=== PATIENT | male | born 1940 | race African-American/Black ===

== ENCOUNTER 2020-05-17 11:16 | Inpatient (IN) | payer MEDICARE, SELFPAY ==
--- NOTE | ~2020-05-17 | XR_ITS ---
EXAMINATION: XR abdomen/kub 1V DATE: 05/18/2020 11:06 INDICATION: Small bowel obstruction. TECHNIQUE: A supine view of the abdomen on 2 radiographs was obtained. COMPARISON: CT abdomen and pelvis 05/17/2020 FINDINGS: There is dilated small bowel in the right abdomen. The colon is decompressed. IMPRESSION: 1. Dilated small bowel, consistent with small bowel obstruction. Reviewed, dictated and finalized at location B. ALOMETRIC TECHNICIAN
--- NOTE | ~2020-05-17 | US_ITS ---
EXAMINATION: US carotid duplex BI DATE: 05/25/2020 14:13 INDICATION: Possible CVA. TECHNIQUE: Grayscale, color Doppler, and pulsed Doppler images of the cervical carotid arteries were obtained. The degree of vessel stenosis is placed in one of the following categories: normal, <50%, 5 0-69%, >=70% but less than near-occlusion, near-occlusion, or total occlusion. Note that percent sten osis relative to normal distal artery lumen diameter is indirectly measured from velocity measurement s as described by Amadou, et al. Radiology 2003; 229:340-346. Notes: Normal: Peak systolic velocity <125 centimeters/sec and no plaque <50%. Peak systolic velocity <125 ( EDV <40; ICA/CCA PSV ratio <2.0; used these factors only a tandem lesions or low cardiac output or co ntralateral disease) 50-69 %: PSV 125-230 (EDV 40-100; ratio 2-4) >= 70% but less than near occlusion: PSV greater than 230 (EDV > 100; ratio> 4.0) Near Occlusion: PSV that is variable; markedly narrowed lumen Occlusion: Absent flow on color/spectral Doppler and no lumen on nugent scale. COMPARISON: None. FINDINGS: RIGHT: The right common carotid artery (CCA) peak systolic velocity (PSV) is 72 cm/s. The right internal car otid artery (ICA) PSV is 57 cm/s. The right ICA end-diastolic velocity (EDV) is 13 cm/s. The right IC A/CCA PSV ratio is 1.1. The external carotid artery (ECA) PSV is 85 cm/s. There is antegrade flow in the right vertebral artery. LEFT: The left CCA PSV is 103 cm/s. The left ICA PSV is 60 cm/s. The left ICA EDV is 10 cm/s. The left ICA/ CCA PSV ratio is 0.7. The ECA PSV is 78 cm/s. There is antegrade flow in the left vertebral artery. IMPRESSION: 1. Less than 50% stenosis in the right internal carotid artery by sonographic criteria. 2. Less than 50% stenosis in the left internal carotid artery by sonographic criteria. Reviewed, dictated and finalized at location A. ENCY EXCHANGE SPECIALIST IMPRESSION: 1. Less than 50% stenosis in the right internal carotid artery by sonographic yoel mclaughlin. 2. Less than 50% stenosis in the left internal carotid artery by sonographic mckinley herring.
--- NOTE | ~2020-05-17 | CT_ITS ---
EXAMINATION: CT brain wo con DATE: 05/21/2020 14:13 INDICATION: Mental status change. TECHNIQUE: Computed tomography (CT) of the head was performed without intravenous contrast. The mA wa s adjusted according to patient size. Iterative reconstruction technique was employed. The dose-lengt h product was 681.00 mGy-cm. COMPARISON: None FINDINGS: There is diffuse brain volume loss. There are scattered areas of low attenuation in the cer ebral white matter. There is no intracranial hemorrhage, acute infarction, or abnormal intracranial m ass lesion. The ventricles are normal in size for the degree of brain volume loss. The paranasal sinu ses are clear. The orbits are normal. The mastoid air cells are normal. IMPRESSION: 1. Extensive nonspecific cerebral white matter disease, which likely represents chronic small vessel ischemic disease. Reviewed, dictated and finalized at location B. D GLASS ROD DOWEL MACHINE OPERATOR
--- NOTE | ~2020-05-17 | MR_ITS ---
EXAMINATION: MR brain/brain stem wo con DATE: 05/24/2020 13:07 INDICATION: Confusion. TECHNIQUE: Magnetic resonance imaging (MRI) of the brain and brainstem was performed without intraven ous contrast. Sequences included sagittal and axial T1-weighted FSE, axial diffusion-weighted FS EPI, axial T2*-weighted GRE, axial T2-weighted FLAIR Propeller, and axial T2-weighted Propeller. Apparent diffusion coefficient (ADC) maps were created. COMPARISON: Head CT 05/21/2020 FINDINGS: There is diffuse brain volume loss. There is no intracranial hemorrhage, acute infarction, or abnormal intracranial mass lesion. There are scattered areas of nonspecific increased T2-weighted signal intensity in the cerebral white matter and hannah. The ventricles are normal in size for the deg ree of brain volume loss. There is mild mucosal thickening in right maxillary sinus. The mastoid air cells are normal. The orbits are normal. IMPRESSION: 1. Extensive nonspecific cerebral white matter disease and pontine disease, which likely represents c hronic small vessel ischemic disease. Reviewed, dictated and finalized at location A. STRIPPER IMPRESSION: 1. Extensive nonspecific cerebral white matter disease and pontine disease, whi ch likely represents chronic small vessel ischemic disease.
--- NOTE | ~2020-05-17 | XR_ITS ---
EXAMINATION: XR chest 2V DATE: 05/23/2020 13:20 INDICATION: Cough and sputum production. TECHNIQUE: frontal and lateral views of the chest were obtained. COMPARISON: CT abdomen and pelvis dated 05/17/2020 FINDINGS: Evaluation is limited by patient body habitus particularly on the lateral projection. Subtle bronchie ctatic changes are seen at the bilateral lower lung zones, right greater than left which are better a ppreciated on prior CT. Subtle bilateral perihilar opacities and additional airspace opacities in the right upper lung zone. No pleural effusion or pneumothorax. Heart size is normal. IMPRESSION: 1. Opacities in the right upper lung zone and bilateral perihilar regions which could represent pneum onia, pulmonary edema, atelectasis or some combination thereof. 2. Bronchiectatic changes at the bilateral lower lobes, right greater than left. Reviewed, dictated and finalized at location A. ROOM SUPERVISOR IMPRESSION: 1. Opacities in the right upper lung zone and bilateral perihilar regions which could represent pneumonia, pulmonary edema, atelectasis or some combination th ereof. 2. Bronchiectatic changes at the bilateral lower lobes, right greater than left .
--- NOTE | ~2020-05-17 | XR_ITS ---
EXAMINATION: XR barium swallow modified DATE: 05/19/2020 15:16 INDICATION: Dysphagia. TECHNIQUE: The patient was given barium-containing material of multiple consistencies to swallow by torri guerrier speech pathologist while I performed fluoroscopy. Dose-area product was [id number] Gy-cm2. FINDINGS: Oral Stage: Within functional limits Pharyngeal Phase: Reduced laryngeal elevation and abduction Reduced tongue base retraction Reduced pharyngeal squeeze Significant vallecular residue Laryngeal penetration and aspiration, uncontrolled, with thin liquids, with weak cough reflex and inc omplete clearance of aspirate Cervical/Esophageal Stage: Within functional limits IMPRESSION: Modified esophagram findings as above. Please refer to the speech [facility]. Reviewed, dictated and finalized at Location A. Reviewed, dictated and finalized at location A. BILITATION CASE COORDINATOR IMPRESSION: Modified esophagram findings as above. Please refer to the speech t herapy report for specific recommendations.
--- NOTE | ~2020-05-17 | XR_ITS ---
EXAMINATION: XR abdomen NG/feed tube insert DATE: 05/17/2020 14:51 INDICATION: Nasogastric tube placement. TECHNIQUE: An upright view of the abdomen was obtained. COMPARISON: CT abdomen and pelvis 05/17/2020 FINDINGS: The lower abdomen is excluded. There are no gas-filled dilated loops of bowel. The nasogast yobani tube tip is in the stomach. Chronic lung disease is noted. IMPRESSION: 1. Nasogastric tube tip in the stomach. Reviewed, dictated and finalized at location B. R REPAIR SHOP SUPERVISOR
--- NOTE | ~2020-05-17 | XR_ITS ---
MODIFIED ESOPHAGRAM HISTORY: Dysphagia. TECHNIQUE: Modified barium esophagram was performed by speech pathologist under radiologist fluorosco pic guidance. This was recorded on tape. The exam was reviewed on 05/26/2020 09:13 LEARNING DESIGNER. The Fluoro scopy time is 0.8 minutes. One fluoroscopic image. FINDINGS: Lateral projection of the cervical spine demonstrates normal alignment. There is normal s wallowing function without evidence for penetration or aspiration.. IMPRESSION: 1: Normal swallowing function without evidence for aspiration or penetration. 2: Please refer to speech pathologist report for additional detail. Reviewed, dictated and finalized at location A. NING DESIGNER
--- NOTE | ~2020-05-17 | CT_ITS ---
EXAMINATION: CT chest wo con DATE: 05/23/2020 18:30 INDICATION: Cough and increased sputum production TECHNIQUE: Computed tomography (CT) of the chest was performed without intravenous contrast. The dose -length product (DLP) was 853.32 mGy-cm. Automated exposure control and iterative reconstruction tech nique were employed. COMPARISON: None FINDINGS: There are airspace opacities of the right upper lobe and dependent airspace opacities in th e bilateral lower lobes. There is bilateral perihilar bronchiectasis extending into the upper and low er lobes. Small pleural effusions are present. There is no pneumothorax. There is calcified coronary artery atherosclerosis. No pathologically enlarged thoracic lymph nodes are identified. The heart siz e is normal. Bilateral gynecomastia is noted. There is mild thoracic spondylosis. Severe lower cervic al spondylosis is noted. Contrast from recent modified esophagram partially opacifies the large bowel . IMPRESSION: 1. Airspace opacities in the right upper lobe and bilateral lower lobes, consistent with pneumonia. 2. Bronchiectasis. Reviewed, dictated and finalized at location A. UCE TEAM MEMBER IMPRESSION: 1. Airspace opacities in the right upper lobe and bilateral lower lobes, consis tent with pneumonia. 2. Bronchiectasis.
--- NOTE | ~2020-05-17 | CT_ITS ---
EXAMINATION: CT abdomen pelvis wo con DATE: 05/17/2020 13:23 INDICATION: Abdominal pain, constipation TECHNIQUE: Computed tomography (CT) of the abdomen and pelvis was performed without intravenous contr ast. Automated exposure control and iterative reconstruction technique were employed. Exam dose: 148 0.78 mGy-cm total exam DLP. COMPARISON: None. FINDINGS: There is bronchiectasis and probable fibrotic change in the lower lobes and middle lobe, es pecially the posteromedial right lower lobe. There are numerous small stones in the dependent aspect of the gallbladder. No gallbladder wall thick ening or pericholecystic fluid or inflammation is noted. No hepatic space-occupying mass lesion or bi le duct dilatation is evident. There is borderline splenomegaly. No pancreatic mass lesion, calcification or ductal dilatation. Normal morphology of the right adrenal gland. Approximately 7.5 x 12.5 mm left adrenal mass most like ly a small adrenal adenoma in the absence of any known malignancy. Bilateral renal scarring and atrophy. No renal mass lesion or urinary tract calculus or hydroureteron ephrosis. There is atherosclerotic calcification of the abdominal aorta, iliac and femoral arteries. No intrape ritoneal or retroperitoneal or pelvic mass lesion or adenopathy or ascites. There is a Kaye catheter within the evacuated urinary bladder. There is mild pericystic fat strandin g; consider possible cystitis. There are numerous diverticula of the sigmoid and descending colon; there is mild pericolic fat stran ding in the sigmoid colon area, cannot exclude mild sigmoid diverticulitis, without abscess. Normal a ppendix. There is a left inguinal hernia containing small bowel, with associated partial obstruction of the sm all bowel, with proximal fluid-filled small bowel measuring up to 2.5 cm diameter. There is decompres soha of the small bowel as it exits the hernia. There is a fat-containing right inguinal hernia. There is a small fat-containing umbilical hernia. Diffuse osteopenia. There is prominent degenerative disc disease at L4-5 and L5-S1. Is prominent degenerative change at t he apophyseal joints of the lumbar spine IMPRESSION: Left inguinal small bowel containing hernia with associated small bowel obstruction Fat-containing mild right inguinal hernia Cholelithiasis Borderline splenomegaly Probable 7.5 x 12.5 mm left adrenal adenoma Bilateral renal scarring and atrophy Kaye catheter within the evacuated urinary bladder; pericystic fat stranding, cannot exclude cystiti s Diverticulosis of the left colon; cannot exclude mild sigmoid diverticulitis without abscess Reviewed, dictated and finalized at [facility]. Reviewed, dictated and finalized at [facility]. DIGGER IMPRESSION: Left inguinal small bowel containing hernia with associated small bowel obstruction Fat-containing mild right inguinal hernia Cholelithiasis Borderline splenomegaly Probable 7.5 x 12.5 mm left adrenal adenoma Bilateral renal scarring and atrophy Kaye catheter within the evacuated urinary bladder; pericystic fat stranding, cannot exclude cystitis Diverticulosis of the left colon; cannot exclude mild sigmoid diverticulitis wi thout abscess
--- NOTE | ~2020-05-17 | US_ITS ---
EXAMINATION: US renal BI DATE: 05/18/2020 07:57 INDICATION: Acute kidney injury. TECHNIQUE: Multiple ultrasound grayscale images of the kidneys were obtained. COMPARISON: CT abdomen and pelvis 05/17/2020 FINDINGS: The right kidney measures 8.7 x 4.2 x 4.6 cm. The left kidney measures 9.2 x 5.0 x 5.5 cm. The kidney s demonstrate normal parenchymal echogenicity. There is cortical thinning of the kidneys There is no hydronephrosis. The bladder is decompressed by a Kaye catheter. IMPRESSION: 1. Mild atrophy of the kidneys. No hydronephrosis. Reviewed, dictated and finalized at [facility]. ID COMPOUNDER
--- NOTE | ~2020-05-17 | US_ITS ---
EXAMINATION: US soft tissue upper back DATE: 05/26/2020 14:43 INDICATION: Left posterior thorax soft tissue mass. TECHNIQUE: Multiple grayscale and Doppler ultrasound images of the left posterior thorax were obtaine d. COMPARISON: Chest CT 05/23/2020 FINDINGS: There is a 6.0 x 4.7 x 2.4 cm subcutaneous mass in the left posterior superior thorax that is almost completely fat on the recent CT, consistent with a lipoma. IMPRESSION: 1. 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 Reviewed, dictated and finalized at location [facility]. DEVELOPER
[2020-05-17 11:22] VITALS: BP 136/83; PULSE 67; RESP 16; TEMP 35.9; O2SAT 99
[2020-05-17 12:17] LABS: Basophils Percent Auto 0.3 % (0.2-1.2); Eosinophils Percent Auto 0.3 % (0-4.4); Hematocrit 44.2 % (42.0-52.0); Hemoglobin 15.3 g/dL (14.0-18.0); Immature Granulocyte Absolute 0.01 K/mm3 (0.00-0.031); Immature Granulocyte Percent A 0.3 % (0-0.5); Lymphocytes Absolute Auto 0.48 K/mm3 (0.9-3.2); Lymphocytes Percent Auto 13.5 % (18.3-44.2); Mean Corpuscular HGB Conc 34.6 g/dl (32-36); Mean Corpuscular Volume 101.1 fl (80-100); Monocytes Absolute Auto 0.4 K/mm3 (0.1-0.6); Monocytes Percent Auto 12.1 % (2.6-8.5); Neutrophils Absolute Auto 2.6 K/mm3 (1.3-6.7); Neutrophils Percent Auto 73.5 % (45.5-73.1); Platelet Count Result 142 k/mm3 (150-375); Red Blood Count 4.37 M/mm3 (4.6-6.20); Red Cell Distribution Width 14.8 % (11.5-14.5); White Blood Count 3.6 K/mm3 (4.5-10.0)
[2020-05-17 12:33] LABS: Alanine Aminotransferase 38 U/L (4-50); Albumin Level 4.2 g/dL (3.5-5.1); Alkaline Phosphatase 88 U/L (38-126); Anion Gap 15 mmol/L (8-16); Aspartate Amino Transferase 59 U/L (17-59); Blood Urea Nitrogen 90 mg/dL (9-20); Calcium 10.4 mg/dL (8.4-10.2); Carbon Dioxide 19 mmol/L (22-30); Chloride 98 mmol/L (98-107); Estimated CRCL calculation 12 ml/min; Estimated Glomerular Filt Rate 11; Glucose 115 mg/dL (75-110); Lipase 263 U/L (23-300); Potassium 5.3 mmol/L (3.4-5.0); Sodium 132 mmol/L (137-145)
--- NOTE | 2020-05-17 13:16 | ED.GENADULT ---
HPI - General Adult General Chief complaint: Abdominal Pain Stated complaint: abd pain Time Seen by Provider: 05/17/20 13:09 Source: RN notes reviewed History of Present Illness HPI narrative: Patient presents to emergency department from home for abdominal pain. Patient states he has had abdominal pain for the past 4 days pain is described as aching in nature and diffuse throughout the abdomen associated with nausea and vomiting. Patient denies any fevers or chills chest pain shortness of breath diarrhea or any other symptoms. Per the patient's son is present patient does have a history of alcohol use does not drink for the past 5 days. Patient states he has been having decreasing urine output. When patient is asked about alcohol use he states he drinks what ever he is able to Related Data Home Medications Medication Instructions Recorded Confirmed No Home Medications 05/17/20 05/17/20 Allergies Allergy/AdvReac Type Severity Reaction Status Date / Time No Known Allergies Allergy Verified 05/17/20 13:07 Review of Systems Review of Systems: Narrative: Gen.: Denies fevers or chills ENT: Denies congestion Respiratory: Denies shortness of breath or cough CV: Denies chest pain or palpitations GI: See HPI denies burning, urgency, frequency or hematuria Musculoskeletal: Denies back pain or muscle pain Neuro: Denies numbness, tingling, weakness or focal weakness Skin: Denies rash Except as documented, all other systems reviewed and negative PMFSH Past Medical History Medical History (Updated 05/17/20 @ 15:[address]vilal DO) Patient denies significant medical history Social History Social History (Updated 05/17/20 @ 13:[address] Sevilla DO) Smoking status: Former smoker Gender identity (if verbalized by the patient): Male Exam Narrative: Exam Narrative: APPEARANCE: No acute distress, nontoxic, resting in bed HEENT: Normocephalic, atraumatic, OMM RESPIRATORY: No respiratory distress, clear to auscultation bilaterally with no rhonchi wheezing or rales CARDIOVASCULAR: RRR s murmur ABDOMINAL: Soft, nondistended, diffusely tender to palpation no rebound or guarding left inguinal hernia that is nontender and nonreducible MUSCULOSKELETAl: Moves all extremities. No clubbing, cyanosis or edema. NEURO: Awake and alert. Following commands, speech normal, no focal deficits SKIN:: Warm, dry. Normal Color PSYCHIATRIC: Normal affect/mood Course Course Emergency Course: Called and discussed with Dr. Gutierrez presentation work-up. This time will come to see patient in the ED. Agrees with consult recommends admission to hospital service Called and discussed with ENA Tracy for Dr. Clark presentation work-up. Agrees with admission at this time Discussed with patient and family results of workup and diagnosis. Discussed need for admission. Patient and family understand and agree to current treatment plan Nidhi from general surgery came to see pt in ED Vital Signs Vital signs: Vital Signs Temperature 96.7 F L 05/17/20 11:22 Pulse Rate 67 05/17/20 11:22 Respiratory Rate 16 05/17/20 11:22 Blood Pressure 136/83 05/17/20 11:22 Pulse Oximetry 99 05/17/20 11:22 Temperature 96.7 F L 05/17/20 11:22 Pulse Rate 78 05/17/20 15:04 Respiratory Rate 18 05/17/20 15:04 Blood Pressure 132/78 05/17/20 15:04 Pulse Oximetry 99 05/17/20 15:04 Medical Decision Making Vital Signs Vital Signs: Vital Signs Temperature 96.7 F L 05/17/20 11:22 Pulse Rate 67 05/17/20 11:22 Respiratory Rate 16 05/17/20 11:22 Blood Pressure 136/83 05/17/20 11:22 Pulse Oximetry 99 05/17/20 11:22 Temperature 96.7 F L 05/17/20 11:22 Pulse Rate 78 05/17/20 15:04 Respiratory Rate 18 05/17/20 15:04 Blood Pressure 132/78 05/17/20 15:04 Pulse Oximetry 99 05/17/20 15:04 Lab Data Result diagrams: 05/17/20 12:07 05/17/20 12:07 Labs: Lab
--- NOTE | 2020-05-17 13:17 | ECG_ITS ---
Measurements Intervals Robert Rate: 103 P: 26 SD: 159 QRS: 180 QRSD: 158 T: 15 QT: 365 QTc: 479 Interpretive Statements SINUS TACHYCARDIA RIGHT AXIS DEVIATION RIGHT BUNDLE BRANCH BLOCK BASELINE ARTIFACT- II, V2-V3 ABNORMAL ECG Electronically Signed On 05-17-2020 14:18:00 RETAIL MARKETING MANAGER by Clayton Gabriel D.O.
[2020-05-17 13:29] LABS: Ethanol < 10 mg/dL (<10)
[2020-05-17 13:39] LABS: Add Urine Microscopic? YES; Appearance Urine Clear (Clear); Bilirubin Urine Negative (Negative); Blood Urine 3+ (Negative); Color Urine Yellow (Yellow); Glucose Urine UA Negative (Negative); Hyaline Casts Urine 20-29 /lpf; Ketones Urine Negative (Negative); Leukocyte Esterase Ur Trace LEU/UL (Negative); Mucus Urine Rare /lpf; Nitrate Urine Negative (Negative); Protein Urine 1+ mg/dL (Negative); RBC Urine 21-50 /hpf (0-2); Specific Grav Ur 1.018 (1.001-1.035); Squamous Epithelial Cell Urine Few /hpf (Few)
[2020-05-17 14:19] LABS: Lactic Acid Reflex 2.2 mmol/L (0.7-2.1)
[2020-05-17] MEDS: SODIUM CHLORIDE 0.9% IV 1,000 ML 999 ML IV CONT (14:41)
--- NOTE | 2020-05-17 14:42 | PC.NURSE ---
ng tube placed in right nare on third attempt. 1400 cc immediate return of brown fluid
[2020-05-17] MEDS: THIAMINE HCL 200 MG/2 ML VIAL 100 MG IV PUSH (15:01)
[2020-05-17] MEDS: SODIUM CHLORIDE 0.9% IV 1,000 ML 125 ML IV CONT ×2 (15:02→17:54)
[2020-05-17 15:04] VITALS: BP 132/78; PULSE 78; RESP 18; O2SAT 99
[2020-05-17 16:00] VITALS: BP 152/88; PULSE 104; PULSE 56; RESP 19; TEMP 36.2; O2SAT 86; BMI 31.1
--- NOTE | 2020-05-17 16:01 | ADMGEN ---
This patient, Vin Sylvester , was admitted to Medical Room 256-01. Patient/family oriented to hospital policies and general routines including ID bracelet, bed and alarms, visiting hours, pain management, procedures, bathroom and other care routines, personal items, smoking policy, room service/diet, and visiting hours. Information on how to activate the Rapid Response Team has been discussed. Patient/Family are encouraged to report perceived risks to care and to ask questions if they do not understand what they are told or what they should do.
--- NOTE | 2020-05-17 16:12 | PM.CNGS ---
Assessment and Plan Assessment and plan (1) Incarcerated left inguinal hernia: Code(s): K40.30 - Unilateral inguinal hernia, with obstruction, without gangrene, not specified as recurrent Status: Acute Assessment and Plan: CT scan reviewed and discussed with the patient and his son in detail. He has evidence of a left inguinal hernia containing small bowel that appears to be causing a small bowel obstruction. I was unable to fully reduce this hernia on my exam in the ER, although he is completely non-tender and having no pain in this area. The hernia seems to be incarcerated but no evidence of strangulation. It is likely that he has had this hernia for years. I discussed the patient's case and plan of care with Dr. Gutierrez. We will continue NG tube decompression, bowel rest, IV fluids, and analgesics for now. Dr. Gutierrez will also be seeing the patient and see if he is able to reduce the hernia. He will need this hernia repaired, but approach for surgery and timing will be forthcoming following Dr. Gutierrez's evaluation. Thank you for allowing us to see the patient in consultation and we will continue to follow along with you. (2) SBO (small bowel obstruction): Code(s): K56.609 - Unspecified intestinal obstruction, unspecified as to partial versus complete obstruction Status: Acute Assessment and Plan: Small bowel obstruction secondary to the left inguinal hernia mentioned above. Continue NG tube decompression, bowel rest, IV fluids, and analgesics as needed for pain. See plan above. (3) Acute renal failure: Code(s): N17.9 - Acute kidney failure, unspecified Status: Acute Assessment and Plan: Creatinine 5.3 on admission. Possible urinary retention. Kaye catheter in place. Continue to follow labs. Management per Hospitalist. (4) Acute hyperkalemia: Code(s): E87.5 - Hyperkalemia Status: Acute Assessment and Plan: K 5.3, follow labs. (5) Alcohol abuse: Code(s): F10.10 - Alcohol abuse, uncomplicated Status: Acute Assessment and Plan: Monitor for withdrawal symptoms. Management per Hospitalist. History of Present Illness Consult details Consult date: 05/17/20 Reason for consult: other (Left inguinal hernia containing small bowel with small bowel obstruction) Requesting physician: Rd Sevilla, Narrative: This is a 79-year-old male who presented to the emergency department today with complaints of abdominal pain and constipation. The patient is seen with his son in the ER. He reportedly has been constipated for about 5 days. He also developed generalized abdominal pain, nausea, and vomiting over the next few days as well. He tried an enema and dulcolax at home without relief or a bowel movement. The patient's son brought him into the ER for further evaluation since his symptoms were not improving. CT scan of the abdomen and pelvis showed a left inguinal small bowel containing hernia with associated small bowel obstruction and fat-containing mild right inguinal hernia. Also noted was cholelithiasis, borderline splenomegaly, probable 7.5 x 12.5 mm left adrenal adenoma, bilateral renal scarring and atrophy, pericystic fat stranding, and diverticulosis of the left colon. Labs showed a sodium of 132, creatinine 5.3, BUN 90, potassium 5.3, and lactic acid 2.2. The patient had urinary retention and had a Kaye catheter placed in the ER as well. He reportedly had not voided in a few days. The patient is being admitted to the Hospitalist service. Our service was consulted by the ED physician for the findings of a left inguinal hernia containing small bowel with a bowel obstruction. The patient is seen in the ER. NG tube has been placed and was put to low intermittent suction. There has reportedly been 1L of NG output out in the ER. The patient states his bloating and abdominal pain have improved. He denies any pain at this time. He reports noticing a lef
[2020-05-17 17:05] LABS: Reflex Lactic Acid Yes or No Add Lactic
[2020-05-17 18:09] VITALS: BMI 31.1
[2020-05-17 18:14] LABS: Lactic Acid 1.4 mmol/L (0.7-2.1)
[2020-05-17 20:00] VITALS: PULSE 117
[2020-05-17 22:00] VITALS: BP 105/61; PULSE 89; RESP 20; TEMP 36.7; O2SAT 99
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
[2020-05-17 23:57] VITALS: PULSE 95
[2020-05-18] VITALS (9 sets, daily range): BP systolic 126–131; BP diastolic 60–75; PULSE 85–102; RESP 15–22; TEMP 36.2–36.6; O2SAT 93–100; BMI 31.1
[2020-05-18] MEDS: SODIUM CHLORIDE 0.9% IV 1,000 ML 125 ML IV CONT ×3 (02:22→17:28)
[2020-05-18 05:39] LABS: Hematocrit 41.7 % (42.0-52.0); Hemoglobin 14.6 g/dL (14.0-18.0); Mean Corpuscular Hemoglobin 35.4 pg (26-34); Mean Platelet Volume 9.5 fl (7.4-10.4); Platelet Count Result 141 k/mm3 (150-375); Red Blood Count 4.13 M/mm3 (4.6-6.20); Red Cell Distribution Width 14.6 % (11.5-14.5); White Blood Count 3.2 K/mm3 (4.5-10.0)
[2020-05-18 05:59] LABS: Complement C3 113 mg/dL (88-165)
[2020-05-18 06:06] LABS: Alanine Aminotransferase 30 U/L (4-50); Albumin Level 3.8 g/dL (3.5-5.1); Alkaline Phosphatase 76 U/L (38-126); Anion Gap 9 mmol/L (8-16); Aspartate Amino Transferase 33 U/L (17-59); Bilirubin,Total 1.9 mg/dL (0.2-1.3); Blood Urea Nitrogen 87 mg/dL (9-20); Calcium 9.8 mg/dL (8.4-10.2); Carbon Dioxide 23 mmol/L (22-30); Chloride 104 mmol/L (98-107); Creatine Kinase 55 U/L (55-170); Estimated CRCL calculation 16 ml/min; Estimated Glomerular Filt Rate 14; Glucose 77 mg/dL (75-110); Magnesium 2.5 mg/dL (1.6-2.3); Phosphorus 4.5 mg/dL (2.5-4.5); Potassium 5.2 mmol/L (3.4-5.0); Sodium 136 mmol/L (137-145)
[2020-05-18 06:50] LABS: CRP 19.8 mg/dL (<1.0)
[2020-05-18 07:28] LABS: Band Neutrophils Percent 9 % (0-6); Lymphocytes Absolute Manual 0.44 K/mm3 (1.1-4.5); Monocytes Absolute Manual 0.22 K/mm3 (0.1-0.90); Monocytes Percent Manual 7 % (3-9); Neutrophils Absolute Manual 2.52 K/mm3 (1.3-6.7); Neutrophils Percent Manual 70 % (46-73); Total Cells Counted 100
[2020-05-18 08:09] LABS: Hepatitis B Surface Antigen Negative (Negative)
[2020-05-18 08:25] LABS: Erythrocyte Sedimentation Rate 41 mm/hr (0-20)
[2020-05-18 08:27] LABS: Hepatitis B Surface Anti Res Negative
[2020-05-18 09:44] LABS: Creatinine Urine 133.9 mg/dL; Total Protein Urine Random 33 mg/dL; Ur Ttl Prot Creatinine Ratio 0.25 mg/mg (0-0.20)
[2020-05-18 09:51] LABS: Sodium Urine Random 53 meq/L
--- NOTE | 2020-05-18 10:04 | PM.CNNEP ---
Assessment and Plan Assessment and plan (1) Acute renal failure: Code(s): N17.9 - Acute kidney failure, unspecified Status: Acute Assessment and Plan: unclear what baseline creatinine is.... renal ultrasound as well as CT of abd/pelvis argue in favor some component of renal insufficiency - cortical thinning of the kidneys and mild atrophy of the kidneys and nilateral renal scarring and atrophy given presence of blood and protein on UA, serological testing ordered follow-up on urine culture urine electrolytes suggest a component of pre-renal azotemia assess for proteinuria follow repeat labs and UOP (2) Acute hyperkalemia: Code(s): E87.5 - Hyperkalemia Status: Acute Assessment and Plan: presumably related to #1 follow trend with IVF hydration (3) SBO (small bowel obstruction): Code(s): K56.609 - Unspecified intestinal obstruction, unspecified as to partial versus complete obstruction Status: Acute Assessment and Plan: due to hernia which is reducible NG tube for decompression Surgery following (4) History of hypertension: Code(s): Z86.79 - Personal history of other diseases of the circulatory system Status: Acute Assessment and Plan: reportedly not an issues and was taken off medications follow trend of hemodynamics Will continue to follow. History of Present Illness Reason for Consult Consult date: 05/18/20 Reason for consult: acute renal failure Chief Complaint Chief complaint: incarcerated inguinal hernia,small bowel obstructi History of Present Illness Narrative: Most of the information I have obtained is from review of the electronic medical record as the patient is not the best historian. The patient a 79 year old male with a past medical history as outlined below who presented to [facility] ER with complaints of abdominal pain. The patient states his abdominal pain had been going on for at least four days if not longer. Associated symptoms included nausea and vomiting. He denies any overt fevers chills diarrhea hematochezia, or melena. He also mentions that he has noted that his urine output has been somewhat decreased in that same time frame. Because of these constellation of symptoms that seem to be getting worse, he presented to the ER for further evaluation. Workup and evaluation emergency room demonstrated the patient be hemodynamically stable and routine blood tests that were done demonstrated a markedly elevated BUN and creatinine associated with a mildly elevated potassium and relative hyponatremia. His lactic acid was noted to be 2.2 and for further evaluation of his abdominal pain, he had a CT scan of his abdomen that demonstrated left inguinal hernia with small-bowel associated with a small-bowel obstruction. Given his decreased urine output Kaye catheter was placed on the assumption urinary retention may be playing a role as well. Surgery was consulted from the ER with regard to his inguinal hernia and small bowel obstruction. He was subsequently admitted the hospital for further evaluation and therapy Since admission, he has had an NG tube for decompression and surgery has evaluated the patient with conservative therapy for now. He was started on IV fluids and his kidney function has improved to some degree. Renal consultation was requested due to his acute kidney injury/ acute renal failure. Unfortunately, I have no baseline creatinine to compare to in terms of establishing where his creatinine/ renal function normally runs. He states that he has not had blood tests or seen a physician in several years. However, he does not recall ever being told that he had kidney issues or kidney problems. He does relate that he has a family history of kidney disease but mentions no acute issues or problems with his kidneys that he is aware of. Currently, the patient has not appear in acute distress
--- NOTE | 2020-05-18 12:12 | PM.PNGS ---
Progress Note: A&P Assessment and Plan (1) Incarcerated left inguinal hernia: Code(s): K40.30 - Unilateral inguinal hernia, with obstruction, without gangrene, not specified as recurrent Status: Acute Assessment and Plan: Left inguinal hernia is able to now be fully reduced. The concern is recurrent incarceration or strangulation. It would be beneficial for the patient to be medically optimized prior to proceeding with surgery if that is what the patient and his family would choose to do. The patient asked that we call his son to discuss surgery. Dr. Gutierrez will be speaking with his son today to go over his options at this point. (2) SBO (small bowel obstruction): Code(s): K56.609 - Unspecified intestinal obstruction, unspecified as to partial versus complete obstruction Status: Acute Assessment and Plan: Will try removing the NG tube and starting clear liquids and see how the patient progresses. (3) Acute renal failure: Code(s): N17.9 - Acute kidney failure, unspecified Status: Acute Assessment and Plan: Creatinine down to 4.2 today. Renal US shows mild atrophy. Nephrology consulted. Increases risks of surgery. Additional Plan Discussed the patient's plan of care with Dr. Gutierrez today who was at the bedside to evaluate the patient with myself. Subjective Subjective Date/Time Seen: 05/18/20 12:12 Patient reports: no flatus and no bowel movement Interval history: Patient seen and reports feeling thirsty today. Denies abdominal pain, nausea, or bloating. Denies flatus or BM. Reports mild, tolerable left groin pain. No other complaints. Review of Systems Review of Systems: All systems reviewed & are unremarkable except as noted in HPI and below Exam Const: General: no acute distress, alert and awake Orientation/consciousness: patient oriented x3 Resp: Effort & Inspection: no respiratory distress Auscultation: clear to auscultation bilaterally Cardio: Rate: regular rate Rhythm: regular rhythm GI: Inspection: normal to inspection, non-distended and obesity GI Palp: Yes Soft to palpation, No Tenderness to palpation present (GI), No Guarding due to palpation present (GI) and No Rebound tenderness present Auscultation: normal bowel sounds Other: Soft, reducible left inguinal hernia Urinary Catheter: Urinary Catheter: patent and draining and urine clear Neuro: General: patient oriented x3 and no focal motor deficits Psych: Mental Status: mental status grossly normal Insight: Good insight present (Psych) Judgement: Good judgement present (Psych) Objective Data Vital Signs Vital Signs: Vital Signs - 24 hr 05/17/20 15:04 05/17/20 16:00 05/17/20 20:00 Temperature 97.1 F L Pulse Rate 78 104 H 117 H Pulse Rate [Monitor] Respiratory Rate 18 19 Blood Pressure 132/78 152/88 H Pulse Oximetry 99 86 L 05/17/20 22:00 05/17/20 23:57 05/18/20 00:00 Temperature 98.0 F Pulse Rate 89 95 Pulse Rate [Monitor] 95 Respiratory Rate 20 Blood Pressure 105/61 Pulse Oximetry 99 05/18/20 04:00 05/18/20 06:00 05/18/20 08:00 Temperature 97.6 F Pulse Rate 91 90 92 Pulse Rate [Monitor] Respiratory Rate 21 H Blood Pressure 126/60 Pulse Oximetry 100 05/18/20 11:08 Temperature Pulse Rate Pulse Rate [Monitor] Respiratory Rate Blood Pressure Pulse Oximetry 100 Intake/Output Intake/Output: Intake & Output 05/15/20 05/16/20 05/17/20 05/18/20 23:59 23:59 23:59 23:59 Intake Total 2049 1999 Output Total 375 2650 Balance 1675 -650 Meds/Results Medications: Active Medications Generic Name Dose Route Start Last Admin Trade Name Freq PRN Reason Stop Dose Admin Sodium Chloride 1,000 mls @ 125 mls/hr 05/17/20 14:30 05/18/20 09:58 Normal Saline Iv IV CONT 125 mls/hr .Q8H CELIA Administration Ceftriaxone Sodium/Dextrose 1 gm in 50 mls @ 100 mls/hr 05/18/20 16:00 Rocephin 1 Gm/D5w 50 Ml IVPB Q
--- NOTE | 2020-05-18 12:38 | PM.IMPN ---
Progress Note: A&P Assessment and Plan (1) Incarcerated left inguinal hernia: Code(s): K40.30 - Unilateral inguinal hernia, with obstruction, without gangrene, not specified as recurrent Status: Acute Assessment and Plan: Patient presented with abdominal pain. CT showed left inguinal hernia containing small bowel. Appeared to be incarcerated upon presentation but now easily reducible. General surgery is following and recommendations are appreciated. Surgical repair of is being considered due to concerns for recurrent incarceration or strangulation. Surgery will be discussing with patient's family today. (2) SBO (small bowel obstruction): Code(s): K56.609 - Unspecified intestinal obstruction, unspecified as to partial versus complete obstruction Status: Acute Assessment and Plan: Secondary to left inguinal hernia as noted above. NG tube has been discontinued today. Begin clear liquids. Advance as tolerated per surgery recommendations Continue IV fluid hydration Analgesics and antiemetics as needed (3) Acute renal failure: Code(s): N17.9 - Acute kidney failure, unspecified Status: Acute Assessment and Plan: Baseline creatinine is unclear. Renal ultrasound showed mild atrophy of the kidneys with no hydronephrosis. May be prerenal secondary to dehydration. May be obstructive secondary to suspected urinary retention. BUN and Cr with slow improvement. Nephrology is following and recommendations are appreciated. Serological workup pending. Monitor electrolytes closely. Monitor urine output. Renally dose medications and avoid nephrotoxins. Monitor renal function closely (4) Acute hyperkalemia: Code(s): E87.5 - Hyperkalemia Status: Acute Assessment and Plan: Presumed to be secondary to TRENT as above. Improving with IV fluid hydration. Telemetry reviewed with no evidence of arrhythmias. Monitor potassium closely. Continue IV fluids. Continue monitoring on telemetry. (5) Alcohol abuse: Code(s): F10.10 - Alcohol abuse, uncomplicated Status: Acute Assessment and Plan: It is reported that patient drinks 1-2 beers daily to every other day. Also noted that patient drinks gin. He is unable to provide further information on his drinking. Unclear if he has history of alcohol withdrawal symptoms. Most recent CIWA score is 4. CIWA protocol is in place. Begin thiamine and folic acid. Encourage alcohol cessation (6) Urinary retention: Code(s): R33.9 - Retention of urine, unspecified Status: Acute Assessment and Plan: Patient had a Flor catheter placed in the ED. Etiology is unclear, however urinary retention is suspected as patient was initially straight catheterized. Urine output from straight cath is unknown. UA slightly abnormal, not entirely convincing for UTI, but this could potentially explain retention. His granddaughter notes that she recently has noticed decreased urine output. Continue flor catheter. Monitor I&O Continue IV Rocephin at this time. Urine culture is pending Attempt voiding trial in 1-2 days (7) History of hypertension: Code(s): Z86.79 - Personal history of other diseases of the circulatory system Status: Acute Assessment and Plan: No longer requiring medication. Blood pressures reviewed and have been well controlled. BP today is 126/60. Monitor BP daily. Subjective Date/time seen: 05/18/20 12:38 Interval history: Date of service: 05/18/2020 Vin Sylvester is a 79-year-old male with a history of hypertension, hyperlipidemia, and probable underlying dementia who is seen in follow-up for incarcerated left inguinal hernia with associated small-bowel obstruction. he is feeling well today and has no complaints. He is a poor historian is not very conversive. I spoke with his granddaughter, Mercy, via phone who repo
[2020-05-19] VITALS (7 sets, daily range): BP systolic 130–136; BP diastolic 60–72; PULSE 83–104; RESP 18–22; TEMP 36–36.6; O2SAT 97–99
[2020-05-19] MEDS: SODIUM CHLORIDE 0.9% IV 1,000 ML 125 ML IV CONT ×2 (02:05→10:12)
[2020-05-19 05:59] LABS: Hematocrit 43.8 % (42.0-52.0); Hemoglobin 14.7 g/dL (14.0-18.0); Mean Corpuscular HGB Conc 33.6 g/dl (32-36); Mean Corpuscular Hemoglobin 35.9 pg (26-34); Mean Corpuscular Volume 106.8 fl (80-100); Mean Platelet Volume 9.7 fl (7.4-10.4); Platelet Count Result 113 k/mm3 (150-375); Red Cell Distribution Width 14.9 % (11.5-14.5); White Blood Count 4.5 K/mm3 (4.5-10.0)
[2020-05-19 07:46] LABS: Alanine Aminotransferase 18 U/L (4-50); Albumin Level 3.1 g/dL (3.5-5.1); Alkaline Phosphatase 66 U/L (38-126); Anion Gap 7 mmol/L (8-16); Aspartate Amino Transferase 17 U/L (17-59); Blood Urea Nitrogen 73 mg/dL (9-20); Carbon Dioxide 22 mmol/L (22-30); Chloride 109 mmol/L (98-107); Estimated CRCL calculation 23 ml/min; Estimated Glomerular Filt Rate 20; Glucose 118 mg/dL (75-110); Magnesium 2.3 mg/dL (1.6-2.3); Potassium 4.1 mmol/L (3.4-5.0); Sodium 138 mmol/L (137-145)
[2020-05-19] MEDS: FOLIC ACID 1 MG TABLET PO (09:11)
[2020-05-19] MEDS: THIAMINE HCL 100 MG TABLET PO (09:11)
--- NOTE | 2020-05-19 11:40 | PM.IMPN ---
Progress Note: A&P Assessment and Plan (1) Incarcerated left inguinal hernia: Code(s): K40.30 - Unilateral inguinal hernia, with obstruction, without gangrene, not specified as recurrent Status: Acute Assessment and Plan: Patient presented with abdominal pain. CT showed left inguinal hernia containing small bowel. Appeared to be incarcerated upon presentation but now easily reducible. General surgery is following and recommendations are appreciated. Plan for surgical repair tomorrow. Patient will be made NPO after midnight. (2) SBO (small bowel obstruction): Code(s): K56.609 - Unspecified intestinal obstruction, unspecified as to partial versus complete obstruction Status: Acute Assessment and Plan: Secondary to left inguinal hernia as noted above. NG tube discontinued on 05/18/20. Tolerating clear liquids. Continue clear liquids. Diet may be advanced to solids per surgery but will await bedside swallow eval. Analgesics and antiemetics as needed Continue miralax daily. (3) Acute renal failure: Code(s): N17.9 - Acute kidney failure, unspecified Status: Acute Assessment and Plan: Baseline creatinine is unclear. Renal ultrasound showed mild atrophy of the kidneys with no hydronephrosis. May be prerenal secondary to dehydration. May be obstructive secondary to suspected urinary retention. BUN and Cr with slow improvement. Nephrology is following and recommendations are appreciated. Serological workup pending. Monitor electrolytes closely. Monitor urine output. Renally dose medications and avoid nephrotoxins. Monitor renal function closely (4) Acute hyperkalemia: Code(s): E87.5 - Hyperkalemia Status: Acute Assessment and Plan: Presumed to be secondary to TRENT as above. Resolved with IV fluid hydration. Telemetry reviewed with no evidence of arrhythmias. Potassium 4.1 today. Monitor potassium closely. Telemetry may be discontinued as hyperkalemia has resolved. (5) Alcohol abuse: Code(s): F10.10 - Alcohol abuse, uncomplicated Status: Acute Assessment and Plan: It is reported that patient drinks 1-2 beers daily to every other day. Also noted that patient drinks gin. He is unable to provide further information on his drinking. Unclear if he has history of alcohol withdrawal symptoms. CIWA score is 4. CIWA protocol is in place. Continue thiamine and folic acid. Encourage alcohol cessation (6) Urinary retention: Code(s): R33.9 - Retention of urine, unspecified Status: Acute Assessment and Plan: Patient had a Flor catheter placed in the ED. Etiology is unclear, however urinary retention is suspected as patient was initially straight catheterized. Urine output from straight cath is unknown. His granddaughter notes that she recently has noticed he has not been urinating as much. Urine output is good. Continue flor catheter. Monitor I&O Discontinue IV Rocephin (received 2 doses) as urine culture is negative. Attempt voiding trial following surgery (7) History of hypertension: Code(s): Z86.79 - Personal history of other diseases of the circulatory system Status: Acute Assessment and Plan: No longer requiring medication. Blood pressures reviewed and have been well controlled. BP today is 130/60. Monitor BP daily. (8) Dysphagia: Code(s): R13.10 - Dysphagia, unspecified Status: Acute Assessment and Plan: Patient noted by nursing staff to have difficulty with liquid diet. He is gurgling on exam with improvement following suctioning. Will obtain bedside swallow eval. Appreciate speech input. Advance diet pending speech recommendations. Continue with suction prn and appropriate oral care Aspiration precautions in place Subjective Date/time seen: 05/19/20 11:40 Interval history: Date of service: 05/19/2020
--- NOTE | 2020-05-19 12:18 | PM.PNGS ---
Progress Note: A&P Assessment and Plan (1) Incarcerated left inguinal hernia: Code(s): K40.30 - Unilateral inguinal hernia, with obstruction, without gangrene, not specified as recurrent Status: Acute Assessment and Plan: Will plan to proceed with Lap left inguinal hernia repair with mesh, da [place] assisted, possible right inguinal hernia repair tomorrow. NPO after midnight tonight. Discussed procedure at length with patient and his sons. (2) Right inguinal hernia: Code(s): K40.90 - Unilateral inguinal hernia, without obstruction or gangrene, not specified as recurrent Status: Acute (3) Acute renal failure: Code(s): N17.9 - Acute kidney failure, unspecified Status: Acute (4) Urinary retention: Code(s): R33.9 - Retention of urine, unspecified Status: Acute Subjective Subjective Date/Time Seen: 05/19/20 12:18 No groin pain today. Multiple BM's. Tolerating clears. Exam GI: Other: No signs of hernia incarceration currently. Objective Data Vital Signs Vital Signs: Vital Signs - 24 hr 05/18/20 14:00 05/18/20 16:00 05/18/20 20:00 Temperature 36.6 C 36.2 C L Pulse Rate 102 H 96 101 H Respiratory Rate 15 22 H Blood Pressure 127/75 131/74 Pulse Oximetry 93 98 05/19/20 00:00 05/19/20 04:00 05/19/20 08:00 Temperature 36.2 C L Pulse Rate 102 H 97 104 H Respiratory Rate 22 H Blood Pressure 130/60 Pulse Oximetry 97 Intake/Output Intake/Output: Intake & Output 05/16/20 05/17/20 05/18/20 05/19/20 23:59 23:59 23:59 23:59 Intake Total 2050 3350 2000 Output Total 375 3200 450 Balance 1839 310 5548 Meds/Results Medications: Active Medications Generic Name Dose Route Start Last Admin Trade Name Freq PRN Reason Stop Dose Admin Acetaminophen 650 mg 05/18/20 13:35 Acetaminophen 325 Mg Tablet PO Q4H PRN Pain 1-3 Fentanyl Citrate 25 mcg 05/19/20 10:23 Fentanyl Citrate Inj (*Crx) 100 Mcg/2 Ml Vial IV PUSH Q2M PRN Pain Folic Acid 1 mg 05/19/20 09:00 05/19/20 09:11 Folic Acid 1 Mg Tablet PO 1 mg DAILY CELIA Administration Hydromorphone HCl 0.25 mg 05/19/20 10:23 Hydromorphone Hcl Inj (*Crx) 1 Mg/Ml Syr IV PUSH Q5M PRN Pain Sodium Chloride 1,000 mls @ 125 mls/hr 05/17/20 14:30 05/19/20 10:12 Normal Saline Iv IV CONT 125 mls/hr .Q8H CELIA Administration Lactated Ringer's 1,000 mls @ 30 mls/hr 05/19/20 10:25 Lr - Lactated Ringers Iv IV CONT .Q24H CELIA Lactated Ringer's 1,000 mls @ 30 mls/hr 05/19/20 10:25 Lr - Lactated Ringers Iv IV CONT .Q24H CELIA Lorazepam 0.5 mg 05/17/20 23:57 Lorazepam Inj (*Crx) 2 Mg/Ml Vial IV PUSH Q6H PRN Anxiety Miconazole Nitrate 1 applic 05/19/20 09:00 05/19/20 09:11 Miconazole 2% Antifungal Ointment 56 Gm TOPICAL 1 applic Q12HR CELIA Administration Ondansetron HCl 4 mg 05/18/20 13:35 Ondansetron Inj 4 Mg/2 Ml Vial IV PUSH Q6H PRN Nausea And Vomiting Ondansetron HCl 4 mg 05/19/20 10:23 Ondansetron Inj 4 Mg/2 Ml Vial IV PUSH ONCE PRN Nausea Polyethylene Glycol 17 gm 05/19/20 09:00 05/19/20 10:38 Polyethylene Glycol 3350 17 Gm Powd.Pack PO Not Given QAM [facility] Thiamine HCl 100 mg 05/19/20 09:00 05/19/20 09:11 Thiamine Hcl 100 Mg Tablet PO 100 mg QAM CELIA Administration Radiology Results: ITS Impressions Abdomen/Pelvis CT 05/17/20 13:26 IMPRESSION: Left inguinal small bowel containing hernia with associated small bowel obstruction Fat-containing mild right inguinal hernia Cholelithiasis Borderline splenomegaly Probable 7.5 x 12.5 mm left adrenal adenoma Bilateral renal scarring and atrophy Kaye catheter within the evacuated urinary bladder; pericystic fat stranding, cannot exclude cystitis Diverticulosis of the left colon; cannot exclude mild sigmoid diverticulitis without abscess Renal Ultrasound 05/18/20 08:12
--- NOTE | 2020-05-19 12:59 | PCSTNOTE ---
Please refer to the Bedside Swallow Evaluation in the EMR. Please note, silent aspiration cannot be ruled out at bedside.
[2020-05-19 14:22] LABS: SARS-CoV-2 RNA PCR Negative
--- NOTE | 2020-05-19 18:02 | PM.PNNEP ---
Progress Note: A&P Assessment and Plan (1) Acute renal failure: Code(s): N17.9 - Acute kidney failure, unspecified Status: Acute Assessment and Plan: unclear what baseline creatinine is.... renal ultrasound as well as CT of abd/pelvis argue in favor some component of renal insufficiency - cortical thinning of the kidneys and mild atrophy of the kidneys and bilateral renal scarring and atrophy given presence of blood and protein on UA, serological testing ordered follow-up on urine culture urine electrolytes suggest a component of pre-renal azotemia assess for proteinuria creatinine improving albeit slowly follow repeat labs and UOP (2) Acute hyperkalemia: Code(s): E87.5 - Hyperkalemia Status: Acute Assessment and Plan: resolving presumably related to #1 follow trend with IVF hydration (3) SBO (small bowel obstruction): Code(s): K56.609 - Unspecified intestinal obstruction, unspecified as to partial versus complete obstruction Status: Acute Assessment and Plan: due to hernia which is reducible NG tube for decompression Surgery following (4) History of hypertension: Code(s): Z86.79 - Personal history of other diseases of the circulatory system Status: Acute Assessment and Plan: reported not an issues and was taken off medications follow trend of hemodynamics Subjective Date/time seen: 05/19/20 18:02 Appears to be doing better in comparison to when I saw him yesterday -- tolerating clear liquid diet and having bowel movements; noted plans by Surgery for operative intervention regarding his inguinal hernias. Exam Narrative: Exam Narrative: General: WD/WN AA male in NAD Heart: normal S1 and S2; no rub Lungs: clear to auscultation Abdomen: soft, nontender, nondistended, positive bowel sounds Extremities: no cyanosis or clubbing; no edema Skin: warm and dry Objective Data Vital Signs Vital Signs: Vital Signs Temp Pulse Resp BP Pulse Ox 05/19/20 14:00 36.0 C L 100 18 136/72 97 05/19/20 12:00 94 05/19/20 08:00 104 H 05/19/20 04:00 36.2 C L 97 22 H 130/60 97 05/19/20 00:00 102 H 05/18/20 20:00 36.2 C L 101 H 22 H 131/74 98 Intake/Output Intake/Output: Intake & Output 05/16/20 05/17/20 05/18/20 05/19/20 23:59 23:59 23:59 23:59 Intake Total 2050 3350 2600 Output Total 375 3200 450 Balance 9145 006 8986 Meds/Results Medications: Active Medications Generic Name Dose Route Start Last Admin Trade Name Freq PRN Reason Stop Dose Admin Acetaminophen 650 mg 05/18/20 13:35 Acetaminophen 325 Mg Tablet PO Q4H PRN Pain 1-3 Chlorhexidine Gluconate 1 applic 05/20/20 06:30 Chlorhexidine Gluconate 4% Ellen 120 Ml Btl TOPICAL 05/20/20 06:31 ONCE ONE Fentanyl Citrate 25 mcg 05/19/20 10:23 Fentanyl Citrate Inj (*Crx) 100 Mcg/2 Ml Vial IV PUSH Q2M PRN Pain Folic Acid 1 mg 05/19/20 09:00 05/19/20 09:11 Folic Acid 1 Mg Tablet PO 1 mg DAILY CELIA Administration Hydromorphone HCl 0.25 mg 05/19/20 10:23 Hydromorphone Hcl Inj (*Crx) 1 Mg/Ml Syr IV PUSH Q5M PRN Pain Sodium Chloride 1,000 mls @ 75 mls/hr 05/17/20 14:30 05/19/20 16:47 Normal Saline Iv IV CONT 75 mls/hr .[id number] CELAI Infusion Lactated Ringer's 1,000 mls @ 30 mls/hr 05/19/20 10:25 Lr - Lactated Ringers Iv IV CONT .Q24H CELIA Lactated Ringer's 1,000 mls @ 30 mls/hr 05/19/20 10:25 Lr - Lactated Ringers Iv IV CONT .Q24H CELIA Cefazolin Sodium 2 gm in 50 mls @ 100 mls/hr 05/20/20 08:00 Ancef 2 Gm/D5w 50 Ml IVPB 05/20/20 08:29 ONCE ONE Lorazepam 0.5 mg 05/17/20 23:57 Lorazepam Inj (*Crx) 2 Mg/Ml Vial IV PUSH Q6H PRN Anxiety Miconazole Nitrate 1 applic 05/19/20 09:00 05/19/20 09:11 Miconazole 2% Antifungal Ointment 56 Gm TOPICAL 1 applic Q12HR CELIA Administration Ondansetron HCl 4 m
[2020-05-19] MEDS: SODIUM CHLORIDE 0.9% IV 1,000 ML 75 ML IV CONT (20:17)
[2020-05-20] VITALS (19 sets, daily range): BP systolic 100–173; BP diastolic 62–98; PULSE 64–99; RESP 12–26; TEMP 35.7–37; O2SAT 93–100
[2020-05-20 05:39] LABS: Hematocrit 35.6 % (42.0-52.0); Hemoglobin 11.8 g/dL (14.0-18.0); Mean Corpuscular HGB Conc 33.1 g/dl (32-36); Mean Corpuscular Hemoglobin 34.9 pg (26-34); Mean Corpuscular Volume 105.3 fl (80-100); Mean Platelet Volume 9.3 fl (7.4-10.4); Platelet Count Result 141 k/mm3 (150-375); Red Blood Count 3.38 M/mm3 (4.6-6.20); Red Cell Distribution Width 15.2 % (11.5-14.5); White Blood Count 5.1 K/mm3 (4.5-10.0)
[2020-05-20 05:57] LABS: Anion Gap 5 mmol/L (8-16); Blood Urea Nitrogen 62 mg/dL (9-20); Calcium 8.6 mg/dL (8.4-10.2); Carbon Dioxide 22 mmol/L (22-30); Chloride 112 mmol/L (98-107); Estimated CRCL calculation 28 ml/min; Estimated Glomerular Filt Rate 26; Glucose 99 mg/dL (75-110); Potassium 4.6 mmol/L (3.4-5.0); Sodium 139 mmol/L (137-145)
[2020-05-20] MEDS: CHLORHEXIDINE GLUCONATE 4% SOL 120 ML BTL 1 APPLIC TOPICAL (06:12)
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
--- NOTE | 2020-05-20 07:54 | PC.NURSE ---
To surgery via bed with OR staff.
[2020-05-20] MEDS: LACTATED RINGERS 1,000 ML 30 ML IV CONT ×2 (08:02→13:30)
--- NOTE | 2020-05-20 09:43 | PCSTNOTE ---
The patient treatment was not able to be completed on 05/20/20 due to patent being in surgery. Will plan to continue treatment per plan of care possibly later today or tomorrow depending on patient status after surgery.
[2020-05-20 10:51] LABS: INR 1.3; Prothrombin Time 16.5 Seconds (11.1-14.7)
[2020-05-20] MEDS: ceFAZolin SODIUM 1 GM VIAL 2 GM IV PUSH (10:56)
--- NOTE | 2020-05-20 11:45 | SUR.OPER ---
arrives with flor to left anterior thigh/draining yellow medium slightly cloudy u/a in tubing clear in bag. flor over left thigh to anesthesia emptied 350ml of u/a on arrival. Patient answers appropriately in pre op. Slow talking.
--- NOTE | 2020-05-20 12:06 | PCOTNOTE ---
OT evaluation unable to be completed due to patient in procedure, will continue to attempt.
--- NOTE | 2020-05-20 12:48 | PCPTNOTE ---
PT evaluation unable to be completed due to patient in procedure, will continue to attempt at later time.
--- NOTE | 2020-05-20 13:16 | PM.PROC ---
Procedure Note - Detailed Date of procedure: 05/20/20 Pre-op diagnosis: incarcerated left inguinal hernia Post-op diagnosis: same Procedure performed: Laparoscopic incarcerated left inguinal hernia repair with Progrip mesh, da [place] assisted Description of procedure: Procedure as well as risks, benefits, and alternatives were discussed with the patient. Written consent was obtained and placed in chart prior to procedure. Patient was brought back to surgical suite. He was placed supine on operating table. Time-out was done to confirm patient and procedure. He was then intubated by Anesthesia Department. His abdomen was prepped and draped in sterile fashion using chlorhexidine prep. 0.5% bupivacaine with epinephrine was infiltrated at each location for incision. An 8 mm incision was made in the left lateral abdomen, and a 5 mm Optiview trocar was advanced through the abdominal layers under direct visualization. Once inside the abdominal cavity, carbon dioxide insufflation was used to create a pneumoperitoneum. A camera was inserted and the abdominal cavity was inspected. The patient was placed in slight Trendelenburg position. An 8 millimeter incision was made on the right lateral abdomen and an 8 millimeter trocar was inserted under direct visualization. Another 8 millimeter incision was made just superior to the umbilicus and an 8 millimeter trocar was inserted under direct visualization. The 5 mm port was then removed and this was replaced with another 8 mm robotic port. The robotic arms were brought up to the patient's bedside and secured to the ports. The camera and instruments were inserted. I then moved over to the robotic console and took control of the camera and instruments. After careful inspection of the abdominal cavity, I began scoring the peritoneum along the left lower quadrant using scissors with electrocautery. The preperitoneal plane was entered and this was carefully dissected caudally along the inferior epigastric vessels. Careful dissection with scissors with electrocautery and blunt dissection was used to continue this dissection. I dissected far enough laterally to allow for mesh placement, and also dissected medially to identify the pubic arch and Ben's ligament. The hernia sac was identified and carefully dissected posteriorly. The cord contents were also identified and the peritoneum was carefully dissected far enough posteriorly to allow for mesh placement. Once an adequate pocket was created, I then placed the mesh within the preperitoneal pocket and carefully unfolded it. The mesh was centered on the hernia defect with adequate overlap circumferentially. The inferior edge of the mesh was inspected to ensure that it was far enough away from the peritoneal edge. The mesh appeared in proper position overlying the entire myopectineal orifice. The peritoneum was then closed over the mesh using a 3-0 V-lock running absorbable suture. The robotic instruments were removed. The robotic arms were disengaged from the ports and moved away from the bedside. The patient was flattened out in bed, the ports were removed under direct visualization, and the pneumoperitoneum was released. The skin of the incisions was approximated using 4-0 Monocryl subcuticular suture, and Exofin glue was applied on top. The patient was awakened from anesthesia, extubated, and transferred to recovery. Implants: Progrip Mesh 10cm x 15cm Anesthesia: GETA and local (0.5% bupivicaine with epi) Surgeon: Neptali Gutierrez DO Estimated blood loss (mL): 20 Drains: No Packing: No Pathology: none sent Complications: No immediate complications Condition: stable Disposition: floor Findings: This is a 79-year-old man who presented to the emergency department 3 days ago with an incarcerated left inguinal hernia causing a small-bowel obstruction. This appeared to be more of a chronic hernia but over the past several days leading up to his presentation he was
--- NOTE | 2020-05-20 15:26 | PC.NURSE ---
Patient returned from OR with OR staff via stretcher. Settled in room. Denies pain. No distress noted. Loose, productive cough noted. Suctioned clear, thick mucus from mouth.
[2020-05-20] MEDS: SODIUM CHLORIDE 0.9% IV 1,000 ML 75 ML IV CONT (15:44)
--- NOTE | 2020-05-20 15:57 | PM.IMPN ---
Progress Note: A&P Assessment and Plan (1) Incarcerated left inguinal hernia: Code(s): K40.30 - Unilateral inguinal hernia, with obstruction, without gangrene, not specified as recurrent Status: Acute Assessment and Plan: Patient presented with abdominal pain. CT showed left inguinal hernia containing small bowel. Hernia was reduced and obstruction resolved. He is now s/p incarcerated left inguinal hernia General surgery is following and recommendations are appreciated. Analgesics as needed for pain (2) SBO (small bowel obstruction): Code(s): K56.609 - Unspecified intestinal obstruction, unspecified as to partial versus complete obstruction Status: Acute Assessment and Plan: Secondary to left inguinal hernia as noted above. NG tube discontinued on 05/18/20. Tolerating diet. Bowels are moving. Appreciate surgery input Analgesics and antiemetics as needed Continue miralax daily. (3) Acute renal failure: Code(s): N17.9 - Acute kidney failure, unspecified Status: Acute Assessment and Plan: Baseline creatinine is unclear. Renal ultrasound showed mild atrophy of the kidneys with no hydronephrosis. Suspect prerenal secondary to dehydration. May be obstructive secondary to suspected urinary retention but less likely. BUN and Cr with slow improvement. Nephrology is following and recommendations are appreciated. Serological workup pending. Monitor electrolytes closely. Monitor urine output. Renally dose medications and avoid nephrotoxins. Monitor renal function closely (4) Acute hyperkalemia: Code(s): E87.5 - Hyperkalemia Status: Acute Assessment and Plan: Presumed to be secondary to TRENT as above. Resolved with IV fluid hydration. Telemetry reviewed with no evidence of arrhythmias. Potassium 4.6 today. Monitor potassium closely. (5) Alcohol abuse: Code(s): F10.10 - Alcohol abuse, uncomplicated Status: Acute Assessment and Plan: It is reported that patient drinks 1-2 beers daily to every other day. Also noted that patient drinks gin. He is unable to provide further information on his drinking. Unclear if he has history of alcohol withdrawal symptoms. CIWA score is 4. CIWA protocol is in place. Continue thiamine and folic acid. Encourage alcohol cessation (6) Urinary retention: Code(s): R33.9 - Retention of urine, unspecified Status: Acute Assessment and Plan: Patient had a Flor catheter placed in the ED. Etiology is unclear, however urinary retention is suspected as patient was initially straight catheterized. Urine output from straight cath is unknown. His granddaughter notes that she recently has noticed he has not been urinating as much. Urine output is good. Continue flor catheter. Monitor I&O Discontinue IV Rocephin (received 2 doses) as urine culture is negative. Attempt voiding trial following surgery (7) History of hypertension: Code(s): Z86.79 - Personal history of other diseases of the circulatory system Status: Acute Assessment and Plan: No longer requiring medication. Blood pressures reviewed and have been well controlled. BP today is 131/67. Monitor BP daily. (8) Dysphagia: Code(s): R13.10 - Dysphagia, unspecified Status: Acute Assessment and Plan: Patient noted by nursing staff to have difficulty with liquid diet. He is gurgling on exam with improvement following suctioning. Bedside swallow eval on 05/19 performed with repeat MBS. It was recommended to continue with soft and bite size diet and mildly thick liquids. Continue with speech therapy. Continue soft and bite size diet and mildly thick liquids Continue with suction prn and appropriate oral care Aspiration precautions in place (9) Altered mental status: Code(s): R41.82 - Altered mental status, unspecified Status: Acute
--- NOTE | 2020-05-20 16:03 | PM.PNNEP ---
Progress Note: A&P Assessment and Plan (1) Acute renal failure: Code(s): N17.9 - Acute kidney failure, unspecified Status: Acute Assessment and Plan: unclear what baseline creatinine is.... renal ultrasound as well as CT of abd/pelvis argue in favor some component of renal insufficiency - cortical thinning of the kidneys and mild atrophy of the kidneys and bilateral renal scarring and atrophy given presence of blood and protein on UA, serological testing underway urine electrolytes suggest a component of pre-renal azotemia; proteinuria present as well creatinine improving albeit slowly follow repeat labs and UOP (2) Acute hyperkalemia: Code(s): E87.5 - Hyperkalemia Status: Acute Assessment and Plan: resolving presumably related to #1 follow trend with IVF hydration (3) SBO (small bowel obstruction): Code(s): K56.609 - Unspecified intestinal obstruction, unspecified as to partial versus complete obstruction Status: Acute Assessment and Plan: due to hernia which is reducible s/p laparoscopic incarcerated left inguinal hernia repair Surgery following (4) History of hypertension: Code(s): Z86.79 - Personal history of other diseases of the circulatory system Status: Acute Assessment and Plan: reported not an issues and was taken off medications follow trend of hemodynamics Subjective Date/time seen: 05/20/20 16:02 Patient is s/p laparoscopic incarcerated left inguinal hernia repair earlier today -- appears to have tolerated the procedure reasonably well; no issues/events overnight or earlier this AM; no apparent distress voiced at the time of my visit. Exam Narrative: Exam Narrative: General: WD/WN AA male in NAD Heart: normal S1 and S2; no rub Lungs: clear to auscultation Abdomen: soft, nontender, nondistended, positive bowel sounds Extremities: no cyanosis or clubbing; no edema Skin: warm and dry Objective Data Vital Signs Vital Signs: Vital Signs Temp Pulse Resp BP Pulse Ox 05/20/20 16:00 72 05/20/20 15:56 35.7 C L 73 18 136/74 100 05/20/20 15:11 36.0 C L 77 18 166/83 H 100 05/20/20 15:00 36.1 C L 77 16 162/84 H 95 05/20/20 14:45 80 18 162/84 H 98 05/20/20 14:30 80 18 173/84 H 97 05/20/20 14:15 92 22 H 153/83 H 93 05/20/20 14:00 99 26 H 163/98 H 96 05/20/20 13:45 98 14 141/73 H 93 05/20/20 13:30 36.6 C 99 12 160/76 H 93 05/20/20 08:00 80 05/20/20 07:57 35.8 C L 74 20 100/81 99 05/20/20 06:00 35.7 C L 78 21 H 126/62 100 05/20/20 04:00 82 05/20/20 01:45 37.0 C 85 18 131/67 96 05/20/20 00:00 80 05/19/20 22:00 36.6 C 83 20 131/70 99 05/19/20 20:00 86 97 Intake/Output Intake/Output: Intake & Output 05/17/20 05/18/20 05/19/20 05/20/20 23:59 23:59 23:59 23:59 Intake Total 2050 3350 3800 850 Output Total 375 3200 1175 830 Balance 0733 205 5944 20 Meds/Results Medications: Active Medications Generic Name Dose Route Start Last Admin Trade Name Freq PRN Reason Stop Dose Admin Acetaminophen 650 mg 05/18/20 13:35 Acetaminophen 325 Mg Tablet PO Q4H PRN Pain 1-3 Hydrocodone Bitart/Acetaminophen 1 tab 05/20/20 15:11 Hydrocodone/Acetaminophen (*Crx) 5-325 Mg Tablet PO Q4H PRN Pain Rated 4-6 Hydrocodone Bitart/Acetaminophen 1 tab 05/20/20 15:11 Hydrocodone/Acetaminophen (*Crx) 7.5-325 Mg Tablet PO Q4H PRN Pain Rated 7-10 Enoxaparin Sodium 40 mg 05/21/20 09:00 Enoxaparin 40 Mg/0.4 Ml Syringe SUB-Q DAILY CELIA Folic Acid 1 mg 05/19/20 09:00 05/20/20 07:44 Folic Acid 1 Mg Tablet PO Not Given DAILY ECLIA Sodium Chloride 1,000 mls @ 75 mls/hr 05/17/20 14:30 05/20/20 15:44 Normal Saline Iv IV CONT 75 mls/hr .[id number] CELIA Administration Lorazepam 0.5 mg 05/17/20 23:57 Lorazepam Inj (*Crx) 2 Mg/Ml Vial IV PUSH Q6H
--- NOTE | 2020-05-20 16:12 | PCDIET ---
Nutrition Follow-Up Complete: Inadequate oral intake r/t poor appetite as evidence by 0% intake PO intake of 50% or greater of meals Goal: Goal not met. Continue goal. Pt current nutrition is NPO Nutrition recommendation: agree Last recorded weight is 104 kg, recommend daily weight due to poor intake Bowel Motility: BM+ today Labs Reviewed:Hgb 11.8, Hct 35.6, GFR 26, Cr 2.40 Meds Noted: Rocephin, Folic Acid, Thiamine, Zofran, Normal Saline Additional Notes: Pt eating no food with 0% intake. NPO currently and has had a few NPO periods during his stay. Speech recommends soft and bite sized level 6 foods and moderately thick liquids. MD notes state probable dementia and ETOH abuse. Recommend assistance with feedings to increase intake. We will offer Ensure Enlive BID as well. We will continue to monitor PO intake, wt every five days.
[2020-05-21] VITALS (14 sets, daily range): BP systolic 116–160; BP diastolic 60–92; PULSE 60–80; RESP 16–21; TEMP 35.8–36.8; O2SAT 96–100
[2020-05-21] MEDS: SODIUM CHLORIDE 0.9% IV 1,000 ML 75 ML IV CONT ×2 (00:29→20:42)
[2020-05-21 05:47] LABS: Hemoglobin 11.1 g/dL (14.0-18.0); Mean Corpuscular HGB Conc 33.6 g/dl (32-36); Mean Corpuscular Hemoglobin 35.2 pg (26-34); Mean Corpuscular Volume 104.8 fl (80-100); Platelet Count Result 140 k/mm3 (150-375); Red Blood Count 3.15 M/mm3 (4.6-6.20); Red Cell Distribution Width 15.1 % (11.5-14.5); White Blood Count 5.3 K/mm3 (4.5-10.0)
[2020-05-21 06:05] LABS: Anion Gap 6 mmol/L (8-16); Blood Urea Nitrogen 49 mg/dL (9-20); Calcium 8.3 mg/dL (8.4-10.2); Carbon Dioxide 19 mmol/L (22-30); Chloride 113 mmol/L (98-107); Estimated CRCL calculation 32 ml/min; Estimated Glomerular Filt Rate 31; Glucose 109 mg/dL (75-110); Potassium 4.7 mmol/L (3.4-5.0); Sodium 138 mmol/L (137-145)
--- NOTE | 2020-05-21 07:16 | WPDANESPN ---
Anes - Prog Note Post-Op Date/Time: 05/21/20 07:16 Cardiovascular status: normal Respiratory status: normal Airway patency: baseline Mental status: baseline Post-Op hydration status: normal Vital Signs: Last Vital Signs Temp 97.2 F L 05/21/20 02:00 Pulse 60 05/21/20 04:00 Resp 21 H 05/21/20 02:00 BP 118/75 05/21/20 02:00 Pulse Ox 100 05/21/20 02:00 Pain Score (VAS): 07/21 I/O: Intake & Output 05/20/20 05/20/20 05/21/20 15:59 23:59 07:59 Intake Total 50 1113 767 Output Total 130 350 Balance -80 763 767 Laboratory Tests 05/21/20 05:32 05/21/20 05:32 05/18/20 05/20/20 05/21/20 05:25 10:00 05:32 WBC 5.3 RBC 3.15 L Hgb 11.1 L Hct 33.0 L MCV 104.8 H MCH 35.2 H MCHC 33.6 RDW 15.1 H Plt Count 140 L MPV 9.0 PT 16.5 H INR 1.3 Sodium Potassium Chloride Carbon Dioxide Anion Gap BUN Creatinine Estim Creat Clear Calc Estimated GFR Glucose Serum Osmolality 307 H Calcium 05/21/20 05:32 WBC RBC Hgb Hct MCV MCH MCHC RDW Plt Count MPV PT INR Sodium 138 Potassium 4.7 Chloride 113 H Carbon Dioxide 19 L Anion Gap 6 L BUN 49 H D Creatinine 2.10 H Estim Creat Clear Calc 32 Estimated GFR 31 L Glucose 109 Serum Osmolality Calcium 8.3 L Post-procedural complaints: none Patient Feedback: Patient satisfied with anesthetic care.
--- NOTE | 2020-05-21 07:58 | PM.PNGS ---
Progress Note: A&P Assessment and Plan (1) Incarcerated left inguinal hernia: Code(s): K40.30 - Unilateral inguinal hernia, with obstruction, without gangrene, not specified as recurrent Status: Acute Assessment and Plan: Doing well on POD#1. Will remove Kaye this AM for voiding trial. Surgically stable and should be able to be discharged once medically cleared. (2) Urinary retention: Code(s): R33.9 - Retention of urine, unspecified Status: Acute Subjective Subjective Date/Time Seen: 05/21/20 07:58 Doing well on POD#1. Minimal complaints of pain. Exam GI: Inspection: incision (C/D/I) GI Palp: No abdominal tenderness, No Guarding due to palpation present (GI) and No Hernia present Objective Data Vital Signs Vital Signs: Vital Signs - 24 hr 05/20/20 08:00 05/20/20 13:30 05/20/20 13:45 Temperature 36.6 C Pulse Rate 80 99 98 Respiratory Rate 12 14 Blood Pressure 160/76 H 141/73 H Pulse Oximetry 93 93 05/20/20 14:00 05/20/20 14:15 05/20/20 14:30 Temperature Pulse Rate 99 92 80 Respiratory Rate 26 H 22 H 18 Blood Pressure 163/98 H 153/83 H 173/84 H Pulse Oximetry 96 93 97 05/20/20 14:45 05/20/20 15:00 05/20/20 15:11 Temperature 36.1 C L 36.0 C L Pulse Rate 80 77 77 Respiratory Rate 18 16 18 Blood Pressure 162/84 H 162/84 H 166/83 H Pulse Oximetry 98 95 100 05/20/20 15:56 05/20/20 16:00 05/20/20 16:56 Temperature 35.7 C L 36.0 C L Pulse Rate 73 72 77 Respiratory Rate 18 18 Blood Pressure 136/74 166/83 H Pulse Oximetry 100 100 05/20/20 20:00 05/20/20 22:00 05/21/20 00:00 Temperature 36.4 C Pulse Rate 79 64 67 Respiratory Rate 21 H Blood Pressure 160/78 H Pulse Oximetry 100 05/21/20 02:00 05/21/20 04:00 05/21/20 06:00 Temperature 36.2 C L 36.8 C Pulse Rate 76 60 68 Respiratory Rate 21 H 20 Blood Pressure 118/75 153/60 H Pulse Oximetry 100 99 Intake/Output Intake/Output: Intake & Output 05/18/20 05/19/20 05/20/20 05/21/20 23:59 23:59 23:59 23:59 Intake Total 3350 3800 1963 1247 Output Total 3200 1175 1180 600 Balance 150 2625 783 647 Meds/Results Medications: Active Medications Generic Name Dose Route Start Last Admin Trade Name Freq PRN Reason Stop Dose Admin Acetaminophen 650 mg 05/18/20 13:35 Acetaminophen 325 Mg Tablet PO Q4H PRN Pain 1-3 Hydrocodone Bitart/Acetaminophen 1 tab 05/20/20 15:11 Hydrocodone/Acetaminophen (*Crx) 5-325 Mg Tablet PO Q4H PRN Pain Rated 4-6 Hydrocodone Bitart/Acetaminophen 1 tab 05/20/20 15:11 Hydrocodone/Acetaminophen (*Crx) 7.5-325 Mg Tablet PO Q4H PRN Pain Rated 7-10 Enoxaparin Sodium 40 mg 05/21/20 09:00 Enoxaparin 40 Mg/0.4 Ml Syringe SUB-Q DAILY CELIA Folic Acid 1 mg 05/19/20 09:00 05/20/20 07:44 Folic Acid 1 Mg Tablet PO Not Given DAILY CELIA Sodium Chloride 1,000 mls @ 75 mls/hr 05/17/20 14:30 05/21/20 00:29 Normal Saline Iv IV CONT 75 mls/hr .[id number] CELIA Administration Lorazepam 0.5 mg 05/17/20 23:57 Lorazepam Inj (*Crx) 2 Mg/Ml Vial IV PUSH Q6H PRN Anxiety Miconazole Nitrate 1 applic 05/19/20 09:00 05/20/20 22:14 Miconazole 2% Antifungal Ointment 56 Gm TOPICAL 1 applic Q12HR CELIA Administration Morphine Sulfate 2 mg 05/20/20 15:11 Morphine Sulfate (*Crx) 2 Mg/Ml Inj IV PUSH Q2H PRN Pain Rated 4-6 Morphine Sulfate 4 mg 05/20/20 15:11 Morphine Sulfate (*Crx) 4 Mg/Ml Inj IV PUSH Q2H PRN Pain Rated 7-10 Ondansetron HCl 4 mg 05/18/20 13:35 Ondansetron Inj 4 Mg/2 Ml Vial IV PUSH Q6H PRN Nausea And Vomiting Polyethylene Glycol 17 gm 05/19/20 09:00 05/20/20 07:44 Polyethylene Glycol 3350 17 Gm Powd.Pack PO Not Given QAM [facility] Thiamine HCl 100 mg 05/19/20 09:00 05/20/20 07:44 Thiamine Hcl 100 Mg Tablet PO Not Given QAM [facility] Radiology Results: ITS Impressions Abdomen/Pelvis CT 05/17/20 1
[2020-05-21] MEDS: polyethylene glycoL 3350 17 GM POWD.PACK PO (09:08)
[2020-05-21] MEDS: FOLIC ACID 1 MG TABLET PO (09:09)
[2020-05-21] MEDS: THIAMINE HCL 100 MG TABLET PO (09:09)
[2020-05-21] MEDS: ENOXAPARIN 40 MG/0.4 ML SYRINGE SUB-Q (09:09)
[2020-05-21 09:24] LABS: Folic Acid 7.1 ng/mL (2.76->20)
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
--- NOTE | 2020-05-21 13:29 | PM.IMPN ---
Progress Note: A&P Assessment and Plan (1) Incarcerated left inguinal hernia: Code(s): K40.30 - Unilateral inguinal hernia, with obstruction, without gangrene, not specified as recurrent Status: Acute Assessment and Plan: Patient presented with abdominal pain. CT showed left inguinal hernia containing small bowel. Hernia was reduced and obstruction resolved. He is now s/p incarcerated left inguinal hernia repair by Dr. Gutierrez on 05/20/20. General surgery is following and recommendations are appreciated. Analgesics as needed for pain (2) SBO (small bowel obstruction): Code(s): K56.609 - Unspecified intestinal obstruction, unspecified as to partial versus complete obstruction Status: Acute Assessment and Plan: Secondary to left inguinal hernia as noted above. NG tube discontinued on 05/18/20. Tolerating diet. Bowels are moving. Appreciate surgery input Analgesics and antiemetics as needed Continue miralax daily. (3) Acute renal failure: Code(s): N17.9 - Acute kidney failure, unspecified Status: Acute Assessment and Plan: Baseline creatinine is unclear. Renal ultrasound showed mild atrophy of the kidneys with no hydronephrosis. Suspect prerenal secondary to dehydration. May be obstructive secondary to suspected urinary retention but less likely. BUN and Cr with slow improvement. Nephrology is following and recommendations are appreciated. Serological workup pending. Monitor electrolytes closely. Monitor urine output. Renally dose medications and avoid nephrotoxins. Monitor renal function closely (4) Acute hyperkalemia: Code(s): E87.5 - Hyperkalemia Status: Acute Assessment and Plan: Presumed to be secondary to TRENT as above. Resolved with IV fluid hydration. Telemetry reviewed with no evidence of arrhythmias. Potassium 4.7 today. Monitor potassium closely. (5) Alcohol abuse: Code(s): F10.10 - Alcohol abuse, uncomplicated Status: Acute Assessment and Plan: It is reported that patient drinks 1-2 beers daily to every other day. Also noted that patient drinks gin. He is unable to provide further information on his drinking. Unclear if he has history of alcohol withdrawal symptoms. [facility] protocol is in place. Continue thiamine and folic acid. Encourage alcohol cessation (6) Urinary retention: Code(s): R33.9 - Retention of urine, unspecified Status: Acute Assessment and Plan: Patient had a Kaye catheter placed in the ED. Etiology is unclear, however urinary retention is suspected as patient was initially straight catheterized. Urine output from straight cath is unknown. His granddaughter notes that she recently has noticed he has not been urinating as much. Urine output is good. Kaye catheter removed today for voiding trial. Bladder scan following void. Monitor I&O Discontinue IV Rocephin (received 2 doses) as urine culture is negative. (7) History of hypertension: Code(s): Z86.79 - Personal history of other diseases of the circulatory system Status: Acute Assessment and Plan: No longer requiring medication. Blood pressures reviewed and have been well controlled. BP today is 153/60. Monitor BP daily. (8) Dysphagia: Code(s): R13.10 - Dysphagia, unspecified Status: Acute Assessment and Plan: Patient noted by nursing staff to have difficulty with liquid diet. He is gurgling on exam with improvement following suctioning. Bedside swallow eval on 05/19 performed with repeat MBS. It was recommended to continue with soft and bite size diet and mildly thick liquids. Continue with speech therapy. Continue soft and bite size diet and mildly thick liquids Continue with suction prn and appropriate oral care Aspiration precautions in place (9) Altered mental status: Code(s): R41.82 - Altered mental status, uns
--- NOTE | 2020-05-21 15:00 | PM.PNNEP ---
Progress Note: A&P Assessment and Plan (1) Acute renal failure: Code(s): N17.9 - Acute kidney failure, unspecified Status: Acute Assessment and Plan: unclear what baseline creatinine is.... renal ultrasound as well as CT of abd/pelvis argue in favor some component of renal insufficiency - cortical thinning of the kidneys and mild atrophy of the kidneys and bilateral renal scarring and atrophy given presence of blood and protein on UA, serological testing underway urine electrolytes suggest a component of pre-renal azotemia; mild proteinuria present as well creatinine improving albeit slowly follow repeat labs and UOP (2) Acute hyperkalemia: Code(s): E87.5 - Hyperkalemia Status: Acute Assessment and Plan: resolving presumably related to #1 follow trend (3) SBO (small bowel obstruction): Code(s): K56.609 - Unspecified intestinal obstruction, unspecified as to partial versus complete obstruction Status: Acute Assessment and Plan: due to hernia which was reducible s/p laparoscopic incarcerated left inguinal hernia repair Surgery following (4) History of hypertension: Code(s): Z86.79 - Personal history of other diseases of the circulatory system Status: Acute Assessment and Plan: reported not an issues and was taken off medications follow trend of hemodynamics Subjective Date/time seen: 05/21/20 15:00 He appears to be doing reasonably well -- pain control is satisfactory and he is eating/drinking without any issues or problems; no apparent distress voiced; no events overnight or earlier this AM; mentation has been improving each day as well. Exam Narrative: Exam Narrative: General: WD/WN AA male in NAD Heart: normal S1 and S2; no rub Lungs: clear to auscultation Abdomen: soft, nontender, nondistended, positive bowel sounds Extremities: no cyanosis or clubbing; no edema Skin: warm and intact Objective Data Vital Signs Vital Signs: Vital Signs Temp Pulse Resp BP Pulse Ox 05/21/20 14:00 35.9 C L 80 16 139/74 99 05/21/20 12:00 75 05/21/20 10:00 35.8 C L 75 18 116/61 96 05/21/20 09:09 96 05/21/20 08:00 64 05/21/20 06:00 36.8 C 68 20 153/60 H 99 05/21/20 04:00 60 05/21/20 02:00 36.2 C L 76 21 H 118/75 100 05/21/20 00:00 67 05/20/20 22:00 36.4 C 64 21 H 160/78 H 100 05/20/20 20:00 79 05/20/20 16:56 36.0 C L 77 18 166/83 H 100 05/20/20 16:00 72 05/20/20 15:56 35.7 C L 73 18 136/74 100 05/20/20 15:11 36.0 C L 77 18 166/83 H 100 Intake/Output Intake/Output: Intake & Output 05/18/20 05/19/20 05/20/20 05/21/20 23:59 23:59 23:59 23:59 Intake Total 3350 3800 1963 1487 Output Total 3200 1175 1180 850 Balance 150 2625 783 637 Meds/Results Medications: Active Medications Generic Name Dose Route Start Last Admin Trade Name Freq PRN Reason Stop Dose Admin Acetaminophen 650 mg 05/18/20 13:35 Acetaminophen 325 Mg Tablet PO Q4H PRN Pain 1-3 Hydrocodone Bitart/Acetaminophen 1 tab 05/20/20 15:11 Hydrocodone/Acetaminophen (*Crx) 5-325 Mg Tablet PO Q4H PRN Pain Rated 4-6 Hydrocodone Bitart/Acetaminophen 1 tab 05/20/20 15:11 Hydrocodone/Acetaminophen (*Crx) 7.5-325 Mg Tablet PO Q4H PRN Pain Rated 7-10 Enoxaparin Sodium 40 mg 05/21/20 09:00 05/21/20 09:09 Enoxaparin 40 Mg/0.4 Ml Syringe SUB-Q 40 mg DAILY CELIA Administration Folic Acid 1 mg 05/19/20 09:00 05/21/20 09:09 Folic Acid 1 Mg Tablet PO 1 mg DAILY CELIA Administration Sodium Chloride 1,000 mls @ 75 mls/hr 05/17/20 14:30 05/21/20 00:29 Normal Saline Iv IV CONT 75 mls/hr .[id number] CELIA Administration Lorazepam 0.5 mg 05/17/20 23:57 Lorazepam Inj (*Crx) 2 Mg/Ml Vial IV PUSH Q6H PRN Anxiety Miconazole Nitrate 1 applic 05/19/20 09:00 05/21/20 09:09 Miconazole 2% Antifungal
[2020-05-22] VITALS (12 sets, daily range): BP systolic 135–174; BP diastolic 69–98; PULSE 64–90; RESP 16–18; TEMP 36–36.5; O2SAT 92–98
[2020-05-22 06:20] LABS: Hematocrit 39.3 % (42.0-52.0); Hemoglobin 12.8 g/dL (14.0-18.0); Mean Corpuscular HGB Conc 32.6 g/dl (32-36); Mean Corpuscular Hemoglobin 35.8 pg (26-34); Mean Corpuscular Volume 109.8 fl (80-100); Mean Platelet Volume 9.5 fl (7.4-10.4); Platelet Count Result 133 k/mm3 (150-375); Red Blood Count 3.58 M/mm3 (4.6-6.20); Red Cell Distribution Width 15.2 % (11.5-14.5); White Blood Count 3.6 K/mm3 (4.5-10.0)
[2020-05-22 06:51] LABS: Anion Gap 10 mmol/L (8-16); Blood Urea Nitrogen 38 mg/dL (9-20); Calcium 8.4 mg/dL (8.4-10.2); Carbon Dioxide 14 mmol/L (22-30); Chloride 113 mmol/L (98-107); Estimated CRCL calculation 40 ml/min; Estimated Glomerular Filt Rate 39; Glucose 77 mg/dL (75-110); Potassium 4.8 mmol/L (3.4-5.0); Sodium 137 mmol/L (137-145)
[2020-05-22] MEDS: THIAMINE HCL 100 MG TABLET PO (08:18)
[2020-05-22] MEDS: FOLIC ACID 1 MG TABLET PO (08:18)
[2020-05-22] MEDS: ENOXAPARIN 40 MG/0.4 ML SYRINGE SUB-Q (08:18)
[2020-05-22] MEDS: polyethylene glycoL 3350 17 GM POWD.PACK PO (08:18)
--- NOTE | 2020-05-22 08:21 | PM.PNGS ---
Progress Note: A&P Assessment and Plan (1) Incarcerated left inguinal hernia: Code(s): K40.30 - Unilateral inguinal hernia, with obstruction, without gangrene, not specified as recurrent Status: Resolved Assessment and Plan: doing well on postoperative day 2. Surgically stable. Okay to discharge once medically stable. (2) SBO (small bowel obstruction): Code(s): K56.609 - Unspecified intestinal obstruction, unspecified as to partial versus complete obstruction Status: Resolved (3) Acute renal failure: Code(s): N17.9 - Acute kidney failure, unspecified Status: Acute (4) Urinary retention: Code(s): R33.9 - Retention of urine, unspecified Status: Acute Subjective Subjective Date/Time Seen: 05/22/20 08:21 Doing well on postoperative day 2. No complaints of left groin pain or swelling. No abdominal pain. Tolerating diet. Exam GI: Inspection: incision ( Clean/dry /intact) GI Palp: No Tenderness to palpation present (GI) and No Guarding due to palpation present (GI) : Scrotum: no inguinal hernias and no scrotal swelling Objective Data Vital Signs Vital Signs: Vital Signs - 24 hr 05/21/20 09:09 05/21/20 10:00 05/21/20 12:00 Temperature 35.8 C L Pulse Rate 75 75 Respiratory Rate 18 Blood Pressure 116/61 Pulse Oximetry 96 96 05/21/20 14:00 05/21/20 16:00 05/21/20 18:00 Temperature 35.9 C L 36.6 C Pulse Rate 80 70 64 Respiratory Rate 16 18 Blood Pressure 139/74 156/72 H Pulse Oximetry 99 100 05/21/20 20:00 05/21/20 20:40 05/21/20 21:45 Temperature 36.1 C L Pulse Rate 70 65 Respiratory Rate 18 Blood Pressure 160/92 H Pulse Oximetry 100 100 05/22/20 00:00 05/22/20 01:27 05/22/20 04:00 Temperature 36.2 C L Pulse Rate 64 68 70 Respiratory Rate 16 Blood Pressure 164/88 H Pulse Oximetry 95 05/22/20 06:00 Temperature 36.0 C L Pulse Rate 68 Respiratory Rate 18 Blood Pressure 174/69 H Pulse Oximetry 97 Intake/Output Intake/Output: Intake & Output 05/19/20 05/20/20 05/21/20 05/22/20 23:59 23:59 23:59 23:59 Intake Total 3800 1963 2607 50 Output Total 1175 1180 850 150 Balance 2625 783 1757 -100 Meds/Results Medications: Active Medications Generic Name Dose Route Start Last Admin Trade Name Freq PRN Reason Stop Dose Admin Acetaminophen 650 mg 05/18/20 13:35 Acetaminophen 325 Mg Tablet PO Q4H PRN Pain 1-3 Hydrocodone Bitart/Acetaminophen 1 tab 05/20/20 15:11 Hydrocodone/Acetaminophen (*Crx) 5-325 Mg Tablet PO Q4H PRN Pain Rated 4-6 Hydrocodone Bitart/Acetaminophen 1 tab 05/20/20 15:11 Hydrocodone/Acetaminophen (*Crx) 7.5-325 Mg Tablet PO Q4H PRN Pain Rated 7-10 Enoxaparin Sodium 40 mg 05/21/20 09:00 05/22/20 08:18 Enoxaparin 40 Mg/0.4 Ml Syringe SUB-Q 40 mg DAILY CELIA Administration Folic Acid 1 mg 05/19/20 09:00 05/22/20 08:18 Folic Acid 1 Mg Tablet PO 1 mg DAILY CELIA Administration Sodium Chloride 1,000 mls @ 75 mls/hr 05/17/20 14:30 05/21/20 20:42 Normal Saline Iv IV CONT 75 mls/hr .[id number] CELIA Administration Lorazepam 0.5 mg 05/17/20 23:57 Lorazepam Inj (*Crx) 2 Mg/Ml Vial IV PUSH Q6H PRN Anxiety Miconazole Nitrate 1 applic 05/19/20 09:00 05/22/20 08:19 Miconazole 2% Antifungal Ointment 56 Gm TOPICAL 1 applic Q12HR CELIA Administration Morphine Sulfate 2 mg 05/20/20 15:11 Morphine Sulfate (*Crx) 2 Mg/Ml Inj IV PUSH Q2H PRN Pain Rated 4-6 Morphine Sulfate 4 mg 05/20/20 15:11 Morphine Sulfate (*Crx) 4 Mg/Ml Inj IV PUSH Q2H PRN Pain Rated 7-10 Ondansetron HCl 4 mg 05/18/20 13:35 Ondansetron Inj 4 Mg/2 Ml Vial IV PUSH Q6H PRN Nausea And Vomiting Polyethylene Glycol 17 gm 05/19/20 09:00 05/22/20 08:18 Polyethylene Glycol 3350 17 Gm Powd.Pack PO 17 gm QAM CELIA Administration Thiamine HCl 100 mg 05/19/20 09:00 05/22/20
--- NOTE | 2020-05-22 09:06 | PM.PNNEP ---
Progress Note: A&P Assessment and Plan (1) Acute renal failure: Code(s): N17.9 - Acute kidney failure, unspecified Status: Acute Assessment and Plan: unclear what baseline creatinine is if not normal. renal ultrasound as well as CT of abd/pelvis argue in favor some component of renal insufficiency - cortical thinning of the kidneys and mild atrophy of the kidneys and bilateral renal scarring and atrophy given presence of blood and protein on UA, serological testing underway urine electrolytes suggest a component of pre-renal azotemia; UA shows proteinuria. Creatinine has improved to 1.7. Continue current therapy (2) Acute hyperkalemia: Code(s): E87.5 - Hyperkalemia Status: Acute Assessment and Plan: Resolved (3) SBO (small bowel obstruction): Code(s): K56.609 - Unspecified intestinal obstruction, unspecified as to partial versus complete obstruction Status: Resolved Assessment and Plan: due to hernia which was reducible s/p laparoscopic incarcerated left inguinal hernia repair Surgery following (4) History of hypertension: Code(s): Z86.79 - Personal history of other diseases of the circulatory system Status: Acute Assessment and Plan: Blood pressure has climbed again. Will add amlodipine. Subjective Date/time seen: 05/22/20 09:06 Interval history: Patient is alert. Somewhat terse but comfortable. He denies any pain or shortness of breath Review of Systems Cardiovascular: Cardiovascular: Reports no additional cardiovascular complaints Respiratory: Respiratory: Reports no additional respiratory complaints Gastrointestinal: Gastrointestinal: Reports no additional gastrointestinal complaints Genitourinary: Genitourinary: Reports no additional male genitourinary complaints Exam Narrative: Exam Narrative: General: WD/WN AA male in NAD Heart: normal S1 and S2; no rub Lungs: clear Abdomen: soft, nontender, nondistended, positive bowel sounds Extremities: no cyanosis or clubbing; no edema Skin: No rash Objective Data Vital Signs Vital Signs: Vital Signs - 24 hr 05/21/20 09:09 05/21/20 10:00 05/21/20 12:00 Temperature 35.8 C L Pulse Rate 75 75 Respiratory Rate 18 Blood Pressure 116/61 Pulse Oximetry 96 96 05/21/20 14:00 05/21/20 16:00 05/21/20 18:00 Temperature 35.9 C L 36.6 C Pulse Rate 80 70 64 Respiratory Rate 16 18 Blood Pressure 139/74 156/72 H Pulse Oximetry 99 100 05/21/20 20:00 05/21/20 20:40 05/21/20 21:45 Temperature 36.1 C L Pulse Rate 70 65 Respiratory Rate 18 Blood Pressure 160/92 H Pulse Oximetry 100 100 05/22/20 00:00 05/22/20 01:27 05/22/20 04:00 Temperature 36.2 C L Pulse Rate 64 68 70 Respiratory Rate 16 Blood Pressure 164/88 H Pulse Oximetry 95 05/22/20 06:00 05/22/20 08:00 Temperature 36.0 C L Pulse Rate 68 77 Respiratory Rate 18 Blood Pressure 174/69 H Pulse Oximetry 97 Intake/Output Intake/Output: Intake & Output 05/19/20 05/20/20 05/21/20 05/22/20 23:59 23:59 23:59 23:59 Intake Total 3800 1963 2607 50 Output Total 1175 1180 850 150 Balance 2625 783 1757 -100 Meds/Results Medications: Active Medications Generic Name Dose Route Start Last Admin Trade Name Freq PRN Reason Stop Dose Admin Acetaminophen 650 mg 05/18/20 13:35 Acetaminophen 325 Mg Tablet PO Q4H PRN Pain 1-3 Hydrocodone Bitart/Acetaminophen 1 tab 05/20/20 15:11 Hydrocodone/Acetaminophen (*Crx) 5-325 Mg Tablet PO Q4H PRN Pain Rated 4-6 Hydrocodone Bitart/Acetaminophen 1 tab 05/20/20 15:11 Hydrocodone/Acetaminophen (*Crx) 7.5-325 Mg Tablet PO Q4H PRN Pain Rated 7-10 Enoxaparin Sodium 40 mg 05/21/20 09:00 05/22/20 08:18 Enoxaparin 40 Mg/0.4 Ml Syringe SUB-Q 40 mg DAILY CELIA Administration Folic Acid 1 mg 05/19/20 09:00 05/22/20 08:18 Folic Acid 1 Mg Tablet PO 1 mg DYLAN
[2020-05-22] MEDS: amLODIPine BESYLATE 2.5 MG TABLET PO (12:04)
[2020-05-22 15:04] LABS: Chloride Rand Ur 33 mmol/L (32-290); Chloride/Creatinine Rand Ur 24 (23-275); Creatinine Random Urine 137 mg/dL (20-320)
--- NOTE | 2020-05-22 16:20 | PM.IMPN ---
Progress Note: A&P Assessment and Plan (1) Incarcerated left inguinal hernia: Code(s): K40.30 - Unilateral inguinal hernia, with obstruction, without gangrene, not specified as recurrent Status: Resolved Assessment and Plan: Patient presented with abdominal pain. CT showed left inguinal hernia containing small bowel. Hernia was reduced and obstruction resolved. He is now s/p incarcerated left inguinal hernia repair by Dr. Gutierrez on 05/20/20. General surgery is following and recommendations are appreciated. Stable from surgical standpoint. Analgesics as needed for pain (2) SBO (small bowel obstruction): Code(s): K56.609 - Unspecified intestinal obstruction, unspecified as to partial versus complete obstruction Status: Resolved Assessment and Plan: Resolved. Secondary to left inguinal hernia as noted above. NG tube discontinued on 05/18/20. Tolerating diet. Bowels are moving. Analgesics and antiemetics as needed Continue miralax daily. (3) Acute renal failure: Code(s): N17.9 - Acute kidney failure, unspecified Status: Acute Assessment and Plan: Baseline creatinine is unclear. Renal ultrasound showed mild atrophy of the kidneys with no hydronephrosis. Suspect prerenal secondary to dehydration. May be obstructive secondary to suspected urinary retention but less likely. UA with blood and protein. BUN and Cr with slow improvement; Cr 1.7 today. Nephrology is following and recommendations are appreciated. Serological workup pending. Monitor electrolytes closely. Monitor urine output. Renally dose medications and avoid nephrotoxins. Monitor renal function closely (4) Acute hyperkalemia: Code(s): E87.5 - Hyperkalemia Status: Acute Assessment and Plan: Presumed to be secondary to TRENT as above. Resolved with IV fluid hydration. Potassium 4.8 today. Monitor potassium closely. (5) Alcohol abuse: Code(s): F10.10 - Alcohol abuse, uncomplicated Status: Acute Assessment and Plan: It is reported that patient drinks 1-2 beers daily to every other day. Also noted that patient drinks gin. He is unable to provide further information on his drinking. Unclear if he has history of alcohol withdrawal symptoms. [facility] protocol is in place. Continue thiamine and folic acid. Encourage alcohol cessation (6) Urinary retention: Code(s): R33.9 - Retention of urine, unspecified Status: Acute Assessment and Plan: Patient had a Kaye catheter placed in the ED. Etiology is unclear, however urinary retention is suspected as patient was initially straight catheterized. Urine output from straight cath is unknown. Urine output is good. Voiding trial successful on 05/21 with no evidence of urinary retention on bladder scan. (7) History of hypertension: Code(s): Z86.79 - Personal history of other diseases of the circulatory system Status: Acute Assessment and Plan: Patient not maintained on antihypertensive therapy. BP initially well controlled but began increasing to 160s systolic. Blood pressure evaluated today and elevated at 174/69. Amlodipine initiated. Monitor BP daily. (8) Dysphagia: Code(s): R13.10 - Dysphagia, unspecified Status: Acute Assessment and Plan: Patient noted by nursing staff to have difficulty with liquid diet. He is gurgling on exam with improvement following suctioning. Bedside swallow eval on 05/19 performed with repeat MBS. It was recommended to continue with soft and bite size diet and mildly thick liquids. Continue with speech therapy. Continue soft and bite size diet and mildly thick liquids Continue with suction prn and appropriate oral care Aspiration precautions in place (9) Altered mental status: Code(s): R41.82 - Altered mental status, unspecified Status: Acute Assessment and Plan: Patient i
[2020-05-23] VITALS (11 sets, daily range): BP systolic 142–167; BP diastolic 70–83; PULSE 65–94; RESP 16–18; TEMP 36.1–36.3; O2SAT 97–100
[2020-05-23 06:35] LABS: Hematocrit 34.2 % (42.0-52.0); Hemoglobin 11.6 g/dL (14.0-18.0); Mean Corpuscular HGB Conc 33.9 g/dl (32-36); Mean Corpuscular Hemoglobin 34.6 pg (26-34); Mean Corpuscular Volume 102.1 fl (80-100); Platelet Count Result 147 k/mm3 (150-375); Red Blood Count 3.35 M/mm3 (4.6-6.20); Red Cell Distribution Width 14.5 % (11.5-14.5); White Blood Count 4.6 K/mm3 (4.5-10.0)
[2020-05-23 06:50] LABS: Anion Gap 7 mmol/L (8-16); Blood Urea Nitrogen 28 mg/dL (9-20); Calcium 8.6 mg/dL (8.4-10.2); Carbon Dioxide 22 mmol/L (22-30); Chloride 110 mmol/L (98-107); Estimated CRCL calculation 45 ml/min; Estimated Glomerular Filt Rate 45; Glucose 82 mg/dL (75-110); Phosphorus 2.6 mg/dL (2.5-4.5); Potassium 4.5 mmol/L (3.4-5.0); Sodium 139 mmol/L (137-145)
[2020-05-23 06:52] LABS: Abnormal Protein Band 1 1.2 g/dL; Albumin 3.2 g/dL (3.8-4.8); Alpha 1 Globulin 0.5 g/dL (0.2-0.3); Alpha 2 Globulin 0.7 g/dL (0.5-0.9); Beta 1 Globulin 0.4 g/dL (0.4-0.6); Gamma Globulin 1.5 g/dL (0.8-1.7); Protein, Total 6.5 g/dL (6.1-8.1)
--- NOTE | 2020-05-23 07:06 | PM.PNNEP ---
Progress Note: A&P Assessment and Plan (1) Acute renal failure: Code(s): N17.9 - Acute kidney failure, unspecified Status: Acute Assessment and Plan: unclear what baseline creatinine is if not normal. renal ultrasound as well as CT of abd/pelvis argue in favor some component of renal insufficiency - cortical thinning of the kidneys and mild atrophy of the kidneys and bilateral renal scarring and atrophy given presence of blood and protein on UA, serological testing underway. This is pending. urine electrolytes suggest a component of pre-renal azotemia; UA shows proteinuria. Creatinine has continued to improve to 1.5 Continue current therapy (2) Acute hyperkalemia: Code(s): E87.5 - Hyperkalemia Status: Acute Assessment and Plan: Resolved (3) SBO (small bowel obstruction): Code(s): K56.609 - Unspecified intestinal obstruction, unspecified as to partial versus complete obstruction Status: Resolved Assessment and Plan: due to hernia which was reducible s/p laparoscopic incarcerated left inguinal hernia repair Surgery following (4) History of hypertension: Code(s): Z86.79 - Personal history of other diseases of the circulatory system Status: Acute Assessment and Plan: Blood pressure is a bit high Now on amlodipine. We will see how it looks tomorrow. Subjective Date/time seen: 05/23/20 07:06 Interval history: Patient is alert. No complaints. Review of Systems Cardiovascular: Cardiovascular: Reports no additional cardiovascular complaints Respiratory: Respiratory: Reports no additional respiratory complaints Gastrointestinal: Gastrointestinal: Reports no additional gastrointestinal complaints Genitourinary: Genitourinary: Reports no additional male genitourinary complaints Exam Narrative: Exam Narrative: General: WD/WN AA male in NAD Heart: normal S1 and S2; no rub Lungs: clear bilaterally Abdomen: soft, nontender, nondistended, positive bowel sounds Extremities: no cyanosis or clubbing; no edema Skin: No rash or subcu nodules Objective Data Vital Signs Vital Signs: Vital Signs - 24 hr 05/22/20 08:00 05/22/20 10:00 05/22/20 12:00 Temperature 36.1 C L Pulse Rate 77 88 90 Respiratory Rate 16 Blood Pressure 135/70 Pulse Oximetry 98 05/22/20 14:00 05/22/20 16:00 05/22/20 17:34 Temperature 36.5 C 36.0 C L Pulse Rate 65 74 78 Respiratory Rate 18 16 Blood Pressure 152/98 H 161/82 H Pulse Oximetry 92 98 05/22/20 20:00 05/22/20 21:46 05/23/20 00:00 Temperature 36.2 C L Pulse Rate 73 75 76 Respiratory Rate 18 Blood Pressure 164/79 H Pulse Oximetry 97 05/23/20 02:00 05/23/20 04:00 05/23/20 06:00 Temperature 36.2 C L 36.3 C L Pulse Rate 72 65 75 Respiratory Rate 16 18 Blood Pressure 167/83 H 162/79 H Pulse Oximetry 98 97 Intake/Output Intake/Output: Intake & Output 05/20/20 05/21/20 05/22/20 05/23/20 23:59 23:59 23:59 23:59 Intake Total 1963 2607 1050 100 Output Total 1180 850 150 Balance 783 1757 900 100 Meds/Results Medications: Active Medications Generic Name Dose Route Start Last Admin Trade Name Freq PRN Reason Stop Dose Admin Acetaminophen 650 mg 05/18/20 13:35 Acetaminophen 325 Mg Tablet PO Q4H PRN Pain 1-3 Hydrocodone Bitart/Acetaminophen 1 tab 05/20/20 15:11 Hydrocodone/Acetaminophen (*Crx) 5-325 Mg Tablet PO Q4H PRN Pain Rated 4-6 Hydrocodone Bitart/Acetaminophen 1 tab 05/20/20 15:11 Hydrocodone/Acetaminophen (*Crx) 7.5-325 Mg Tablet PO Q4H PRN Pain Rated 7-10 Amlodipine Besylate 2.5 mg 05/22/20 09:10 05/22/20 12:04 Amlodipine Besylate 2.5 Mg Tablet PO 2.5 mg QAM CELIA Administration Enoxaparin Sodium 40 mg 05/21/20 09:00 05/22/20 08:18 Enoxaparin 40 Mg/0.4 Ml Syringe SUB-Q 40 mg DAILY CELIA Administration Folic Acid 1 mg 05/19/20 09:00 05/22/20 08:18 F
[2020-05-23] MEDS: amLODIPine BESYLATE 2.5 MG TABLET PO (08:43)
[2020-05-23] MEDS: FOLIC ACID 1 MG TABLET PO (08:43)
[2020-05-23] MEDS: ENOXAPARIN 40 MG/0.4 ML SYRINGE SUB-Q (08:43)
[2020-05-23] MEDS: polyethylene glycoL 3350 17 GM POWD.PACK PO (08:43)
[2020-05-23] MEDS: THIAMINE HCL 100 MG TABLET PO (08:43)
[2020-05-23 15:35] LABS: Anti Streptolysin O Screen <50 IU/mL (<200)
--- NOTE | 2020-05-23 15:52 | PM.IMPN ---
Progress Note: A&P Assessment and Plan (1) Incarcerated left inguinal hernia: Code(s): K40.30 - Unilateral inguinal hernia, with obstruction, without gangrene, not specified as recurrent Status: Resolved Assessment and Plan: Patient presented with abdominal pain. CT showed left inguinal hernia containing small bowel. Hernia was reduced and obstruction resolved. He is now s/p incarcerated left inguinal hernia repair by Dr. Gutierrez on 05/20/20. General surgery is following and recommendations are appreciated. Stable from surgical standpoint. Analgesics as needed for pain (2) SBO (small bowel obstruction): Code(s): K56.609 - Unspecified intestinal obstruction, unspecified as to partial versus complete obstruction Status: Resolved Assessment and Plan: Resolved. Secondary to left inguinal hernia as noted above. NG tube discontinued on 05/18/20. Tolerating diet. Bowels are moving. Analgesics and antiemetics as needed Continue miralax daily. (3) Acute renal failure: Code(s): N17.9 - Acute kidney failure, unspecified Status: Acute Assessment and Plan: Baseline creatinine is unclear. Renal ultrasound showed mild atrophy of the kidneys with no hydronephrosis. Suspect prerenal secondary to dehydration. UA with blood and protein. BUN and Cr with slow improvement; Cr 1.5 today. Nephrology is following and recommendations are appreciated. Serological workup pending. Monitor electrolytes closely. Monitor urine output. Renally dose medications and avoid nephrotoxins. Monitor renal function closely (4) Acute hyperkalemia: Code(s): E87.5 - Hyperkalemia Status: Acute Assessment and Plan: Presumed to be secondary to TRENT as above. Resolved with IV fluid hydration. Potassium 4.5 today. Monitor potassium closely. (5) Alcohol abuse: Code(s): F10.10 - Alcohol abuse, uncomplicated Status: Acute Assessment and Plan: It is reported that patient drinks 1-2 beers daily to every other day. Also noted that patient drinks gin. He is unable to provide further information on his drinking but did state I am an alcoholic to nursing staff. Unclear if he has history of alcohol withdrawal symptoms. [facility] protocol is in place. Continue thiamine and folic acid. Encourage alcohol cessation (6) Urinary retention: Code(s): R33.9 - Retention of urine, unspecified Status: Acute Assessment and Plan: Patient had a Kaye catheter placed in the ED. Etiology is unclear, however urinary retention is suspected as patient was initially straight catheterized. Urine output from straight cath is unknown. Urine output is good. Voiding trial successful on 05/21 with no evidence of urinary retention on bladder scan. (7) History of hypertension: Code(s): Z86.79 - Personal history of other diseases of the circulatory system Status: Acute Assessment and Plan: Patient not maintained on antihypertensive therapy. BP initially well controlled but began increasing to 160s systolic. Blood pressure evaluated today and improved in the 140s after receiving meds. Last BP 143/71. Amlodipine initiated. Monitor BP daily. (8) Dysphagia: Code(s): R13.10 - Dysphagia, unspecified Status: Acute Assessment and Plan: Patient noted by nursing staff to have difficulty with liquid diet. He was gurgling on exam with improvement following suctioning. Bedside swallow eval on 05/19 performed with repeat MBS. It was recommended to continue with soft and bite size diet and mildly thick liquids. Continue with speech therapy. Continue soft and bite size diet and mildly thick liquids Continue with suction prn and appropriate oral care Aspiration precautions in place (9) Altered mental status: Code(s): R41.82 - Altered mental status, unspecified Status: Acute Assessment and Pl
--- NOTE | 2020-05-23 18:19 | PC.NURSE ---
Patient to CT per stretcher.
--- NOTE | 2020-05-23 18:32 | PC.NURSE ---
Patient returned from CT.
[2020-05-23] MEDS: guaiFENesin 12 HR 600 MG TABCR PO (20:53)
[2020-05-24 02:39] LABS: Cryoglobulin, QL Negative (Negative)
[2020-05-24 05:43] LABS: Hematocrit 33.1 % (42.0-52.0); Hemoglobin 11.2 g/dL (14.0-18.0); Mean Corpuscular HGB Conc 33.8 g/dl (32-36); Mean Corpuscular Hemoglobin 34.9 pg (26-34); Mean Corpuscular Volume 103.1 fl (80-100); Mean Platelet Volume 9.2 fl (7.4-10.4); Platelet Count Result 139 k/mm3 (150-375); Red Blood Count 3.21 M/mm3 (4.6-6.20); Red Cell Distribution Width 14.7 % (11.5-14.5); White Blood Count 4.4 K/mm3 (4.5-10.0)
[2020-05-24 05:56] LABS: Albumin Level 2.8 g/dL (3.5-5.1); Anion Gap 3 mmol/L (8-16); Blood Urea Nitrogen 25 mg/dL (9-20); Calcium 8.4 mg/dL (8.4-10.2); Carbon Dioxide 24 mmol/L (22-30); Chloride 110 mmol/L (98-107); Estimated CRCL calculation 48 ml/min; Estimated Glomerular Filt Rate 49; Glucose 105 mg/dL (75-110); Phosphorus 2.4 mg/dL (2.5-4.5); Potassium 4.2 mmol/L (3.4-5.0); Sodium 137 mmol/L (137-145)
[2020-05-24 06:00] VITALS: BP 154/72; PULSE 72; RESP 16; TEMP 36.2; O2SAT 98
[2020-05-24] MEDS: FOLIC ACID 1 MG TABLET PO (08:11)
[2020-05-24] MEDS: polyethylene glycoL 3350 17 GM POWD.PACK PO (08:11)
[2020-05-24] MEDS: guaiFENesin 12 HR 600 MG TABCR PO ×2 (08:11→20:46)
[2020-05-24] MEDS: THIAMINE HCL 100 MG TABLET PO (08:11)
[2020-05-24] MEDS: amLODIPine BESYLATE 2.5 MG TABLET PO (08:11)
[2020-05-24] MEDS: ENOXAPARIN 40 MG/0.4 ML SYRINGE SUB-Q (08:12)
[2020-05-24] MEDS: AMPICILLIN SULB 1.5 GM/NS 50ML 1.5 GM/50 ML VIAL IVPB ×3 (10:21→21:57)
--- NOTE | 2020-05-24 10:24 | PM.PNNEP ---
Progress Note: A&P Assessment and Plan (1) Acute renal failure: Code(s): N17.9 - Acute kidney failure, unspecified Status: Acute Assessment and Plan: unclear what baseline creatinine is if not normal. renal ultrasound as well as CT of abd/pelvis argue in favor some component of renal insufficiency - cortical thinning of the kidneys and mild atrophy of the kidneys and bilateral renal scarring and atrophy In spite of physical appearance of the kidneys on ultrasound, hopefully his creatinine will come down to normal again. Creatinine has continued to improve to 1.4 Continue current therapy (2) Acute hyperkalemia: Code(s): E87.5 - Hyperkalemia Status: Acute Assessment and Plan: Resolved (3) SBO (small bowel obstruction): Code(s): K56.609 - Unspecified intestinal obstruction, unspecified as to partial versus complete obstruction Status: Resolved Assessment and Plan: due to hernia which was reducible s/p laparoscopic incarcerated left inguinal hernia repair Surgery following Patient seems to be doing very well. (4) History of hypertension: Code(s): Z86.79 - Personal history of other diseases of the circulatory system Status: Acute Assessment and Plan: Blood pressure is a bit high Increase amlodipine Subjective Date/time seen: 05/24/20 10:24 Interval history: Patient is alert. No complaints. Slept okay last night. Review of Systems Cardiovascular: Cardiovascular: Reports no additional cardiovascular complaints Respiratory: Respiratory: Reports no additional respiratory complaints Gastrointestinal: Gastrointestinal: Reports no additional gastrointestinal complaints Genitourinary: Genitourinary: Reports no additional male genitourinary complaints Exam Narrative: Exam Narrative: General: WD/WN AA male in NAD Heart: normal S1 and S2; no rub Lungs: clear bilaterally Abdomen: soft, nontender, nondistended, positive bowel sounds Extremities: no cyanosis or clubbing; no edema Skin: No rash Objective Data Vital Signs Vital Signs: Vital Signs - 24 hr 05/23/20 12:00 05/23/20 14:00 05/23/20 16:00 Temperature 36.1 C L Pulse Rate 94 81 80 Respiratory Rate 18 Blood Pressure 143/71 H Pulse Oximetry 99 05/23/20 20:00 05/23/20 21:42 05/24/20 06:00 Temperature 36.2 C L 36.2 C L Pulse Rate 76 76 72 Respiratory Rate 18 18 16 Blood Pressure 158/77 H 154/72 H Pulse Oximetry 100 100 98 Intake/Output Intake/Output: Intake & Output 05/21/20 05/22/20 05/23/20 05/24/20 23:59 23:59 23:59 23:59 Intake Total 2607 1150 520 100 Output Total 850 150 Balance 1757 1000 520 100 Meds/Results Medications: Active Medications Generic Name Dose Route Start Last Admin Trade Name Freq PRN Reason Stop Dose Admin Acetaminophen 650 mg 05/18/20 13:35 Acetaminophen 325 Mg Tablet PO Q4H PRN Pain 1-3 Hydrocodone Bitart/Acetaminophen 1 tab 05/20/20 15:11 Hydrocodone/Acetaminophen (*Crx) 5-325 Mg Tablet PO Q4H PRN Pain Rated 4-6 Hydrocodone Bitart/Acetaminophen 1 tab 05/20/20 15:11 Hydrocodone/Acetaminophen (*Crx) 7.5-325 Mg Tablet PO Q4H PRN Pain Rated 7-10 Amlodipine Besylate 2.5 mg 05/22/20 09:10 05/24/20 08:11 Amlodipine Besylate 2.5 Mg Tablet PO 2.5 mg QAM CELIA Administration Enoxaparin Sodium 40 mg 05/21/20 09:00 05/24/20 08:12 Enoxaparin 40 Mg/0.4 Ml Syringe SUB-Q 40 mg DAILY CELIA Administration Folic Acid 1 mg 05/19/20 09:00 05/24/20 08:11 Folic Acid 1 Mg Tablet PO 1 mg DAILY CELIA Administration Guaifenesin 600 mg 05/23/20 21:00 05/24/20 08:11 Guaifenesin 12 Hr 600 Mg Tabcr PO 600 mg Q12HR CELIA Administration Ampicillin Sodium/Sulbactam Sodium 1.5 gm in 50 mls @ 100 mls/hr 05/24/20 15:00 Unasyn 1.5 Gm/Ns 50 Ml IVPB Q8HR CELIA Lorazepam 0.5 mg 05/17/20 23:57 Lorazepam Inj (*Crx) 2 Mg
[2020-05-24 10:38] LABS: Anti Glomerular Basement Memb <1.0 AI (<1.0)
--- NOTE | 2020-05-24 12:30 | PC.NURSE ---
Patient to MRI per stretcher.
--- NOTE | 2020-05-24 13:30 | PC.NURSE ---
Returned from MRI
[2020-05-24 14:00] VITALS: BP 144/74; PULSE 77; RESP 18; TEMP 36.5; O2SAT 98
--- NOTE | 2020-05-24 14:54 | PM.IMPN ---
Progress Note: A&P Assessment and Plan (1) Incarcerated left inguinal hernia: Code(s): K40.30 - Unilateral inguinal hernia, with obstruction, without gangrene, not specified as recurrent Status: Resolved Assessment and Plan: Patient presented with abdominal pain. CT showed left inguinal hernia containing small bowel. Hernia was reduced and obstruction resolved. He is now s/p incarcerated left inguinal hernia repair by Dr. Gutierrez on 05/20/20. Tolerated the procedure well and pain has been well controlled. General surgery following. Stable from surgical standpoint. Analgesics as needed for pain (2) SBO (small bowel obstruction): Code(s): K56.609 - Unspecified intestinal obstruction, unspecified as to partial versus complete obstruction Status: Resolved Assessment and Plan: Resolved. Secondary to left inguinal hernia as noted above. NG tube discontinued on 05/18/20. Tolerating diet. Bowels are moving. Analgesics and antiemetics as needed Continue miralax daily. (3) Acute renal failure: Code(s): N17.9 - Acute kidney failure, unspecified Status: Acute Assessment and Plan: Baseline creatinine is unclear. Renal ultrasound showed mild atrophy of the kidneys with no hydronephrosis. Suspect prerenal secondary to dehydration. UA with blood and protein. BUN and Cr with slow improvement; Cr 1.4 today. Nephrology is following and recommendations are appreciated. Serological workup pending. Monitor electrolytes closely. Monitor urine output. Renally dose medications and avoid nephrotoxins. Monitor renal function closely (4) Altered mental status: Code(s): R41.82 - Altered mental status, unspecified Status: Acute Assessment and Plan: His mental status has been fluctuant. He does have underlying dementia. His son reports he is not at baseline. CVA is considered due to onset of dysphagia and dysmetria with finger to nose testing. Wernicke's encephalopathy or other sequelae from alcohol abuse also considered. Worsening of dementia is considered but does not explain focal neuro deficits. Seizure disorder considered given fluctuance of mental status. B12 and folate wnl. Head CT showed extensive white matter disease with no acute findings. MRI showed chronic small-vessel ischemic disease with no acute findings. Neuro exam improved and patient no longer demonstrating dysmetria. Neuro consult placed. Recommendations are appreciated. EEG being ordered per neurology recommendations Continue with thiamine and folic acid Monitor mental status closely (5) Dysphagia: Code(s): R13.10 - Dysphagia, unspecified Status: Acute Assessment and Plan: Patient noted by nursing staff to have difficulty with liquid diet. He was gurgling on exam with improvement following suctioning. Bedside swallow eval on 05/19 performed with repeat MBS. It was recommended to continue with soft and bite size diet and mildly thick liquids. Copious frothy clear secretions noted today. Continue with speech therapy. Continue soft and bite size diet and mildly thick liquids Continue with suction prn and appropriate oral care Aspiration precautions in place (6) Aspiration pneumonia: Code(s): J69.0 - Pneumonitis due to inhalation of food and vomit Status: Acute Assessment and Plan: Patient with increased cough productive of clear sputum and known dysphagia. CXR showed opacities in the right upper lung zone and bronchiectatic changes. Follow-up chest CT showed airspace opacities in the right upper lobe and bilateral lower lobes consistent with pneumonia. Suspect this is secondary to aspiration. No fever or leukocytosis noted. Begin IV Unasyn Will attempt collection of sputum culture Monitor respiratory status closely Supportive care to include albuterol as needed and Mucinex. (7) Productive cough: Code(s): R05 - Cough
[2020-05-24 22:00] VITALS: BP 147/74; PULSE 79; RESP 18; TEMP 36.7; O2SAT 96
--- NOTE | 2020-05-25 | ECHO_ITS ---
Patient Info Name: Vin Sylvester Age: 79 years : 1940 Gender: Male Ht: 72 in Wt: 229 lbs BSA: 2.32 m2 HR: 91 bpm BP: 129 / 70 mmHg Technical Quality: Fair Exam Date: 05/25/2020 2:39 PM Exam Location: [facility] Patient Status: Inpatient Admit Date: 05/17/2020 Staff Ordering Physician: Deb Garg PA-C Executive Director Global Brand Marketing: Dasia Bahena RDCS Attending Provider: Deb Garg PA-C Referring Physician: Forest CISNEROS; Exam Type: CA echo doppler w bubble study Study Info Indications - concern for cva/tia Complete two-dimensional, color flow and Doppler transthoracic echocardiogram is performed with agitated saline. Contrast/Agitated Saline Contrast/Ag. Saline: Agitated Saline Amount: 40.00 ml Existing IV Access: Yes IV Access Condition: patent with no signs of infiltration Summary 1. Left ventricular chamber dimension is normal. 2. Left ventricular systolic function is normal, estimated at 55-60%. 3. There is mildly increased left ventricular wall thickness. 4. Left ventricular septal wall motion is abnormal with septal motion related to bundle branch block. 5. The left ventricular diastolic function is grade I diastolic dysfunction. 6. E/e' 8 is minimally elevated. 7. Agitated saline injection with and without valsalva maneuver which opacified right cardiac chambers and with few bubbles crossing to left sided cardiac chambers suggestive of small patent foramen ovale. Left Ventricle E/e' 8 is minimally elevated. Left ventricular chamber dimension is normal. Left ventricular systolic function is normal, estimated at 55-60%. There is mildly increased left ventricular wall thickness. Left ventricular septal wall motion is abnormal with septal motion related to bundle branch block. The left ventricular diastolic function is grade I diastolic dysfunction. Right Ventricle Right ventricular chamber dimension is normal. Right ventricular systolic function is normal. Left Atria Left atrial chamber dimension is normal. Right Atria Right atrial chamber dimension is normal. Atrial Septum Agitated saline injection with and without valsalva maneuver which opacified right cardiac chambers and with few bubbles crossing to left sided cardiac chambers suggestive of small patent foramen ovale. Interatrial septum not well visualized by agitated saline imaging. Aortic Valve The aortic valve is trileaflet. There is moderate aortic valve sclerosis. There is no aortic valve stenosis. There is no aortic valve regurgitation. Pulmonic Valve There is no pulmonic regurgitation. Mitral Valve There is no mitral valve stenosis. There is trace mitral valve regurgitation. Tricuspid Valve There is no tricuspid valve regurgitation. Pericardium/Pleural There is no pericardial effusion. Inferior Vena Cava Normal inferior vena cava with >50% collapse upon inspiration consistent with normal right atrial pressure, 5 mmHg. Aorta The aortic root size at the sinus of Valsalva is normal. Left Ventricular Outflow Tract Name Value Normal LVOT 2D LVOT Diameter 2.1 cm LVOT Doppler
[2020-05-25 05:48] LABS: Hematocrit 30.9 % (42.0-52.0); Hemoglobin 10.5 g/dL (14.0-18.0); Mean Platelet Volume 9.1 fl (7.4-10.4); Platelet Count Result 165 k/mm3 (150-375); Red Cell Distribution Width 14.6 % (11.5-14.5); White Blood Count 4.1 K/mm3 (4.5-10.0)
[2020-05-25 06:00] VITALS: BP 129/70; PULSE 77; RESP 21; TEMP 36.1; O2SAT 100
[2020-05-25 06:01] LABS: Anion Gap 4 mmol/L (8-16); Blood Urea Nitrogen 26 mg/dL (9-20); Calcium 8.4 mg/dL (8.4-10.2); Carbon Dioxide 27 mmol/L (22-30); Chloride 110 mmol/L (98-107); Estimated CRCL calculation 40 ml/min; Estimated Glomerular Filt Rate 39; Glucose 94 mg/dL (75-110); Sodium 141 mmol/L (137-145)
[2020-05-25] MEDS: AMPICILLIN SULB 1.5 GM/NS 50ML 1.5 GM/50 ML VIAL IVPB ×3 (06:04→21:13)
--- NOTE | 2020-05-25 07:02 | PM.PNNEP ---
Progress Note: A&P Assessment and Plan (1) Acute renal failure: Code(s): N17.9 - Acute kidney failure, unspecified Status: Acute Assessment and Plan: unclear what baseline creatinine is if not normal. renal ultrasound as well as CT of abd/pelvis argue in favor some component of renal insufficiency - cortical thinning of the kidneys and mild atrophy of the kidneys and bilateral renal scarring and atrophy His creatinine today is 1.7. I suspect he has reached his new baseline. (2) Acute hyperkalemia: Code(s): E87.5 - Hyperkalemia Status: Acute Assessment and Plan: Resolved (3) SBO (small bowel obstruction): Code(s): K56.609 - Unspecified intestinal obstruction, unspecified as to partial versus complete obstruction Status: Resolved Assessment and Plan: due to hernia which was reducible s/p laparoscopic incarcerated left inguinal hernia repair Surgery following Patient seems to be doing very well. (4) History of hypertension: Code(s): Z86.79 - Personal history of other diseases of the circulatory system Status: Acute Assessment and Plan: Blood pressure has gradually been coming down. On amlodipine Subjective Date/time seen: 05/25/20 07:02 Interval history: Patient is alert. No complaints. Slept okay last night. Eating well he says. Review of Systems Cardiovascular: Cardiovascular: Reports no additional cardiovascular complaints Respiratory: Respiratory: Reports no additional respiratory complaints Gastrointestinal: Gastrointestinal: Reports no additional gastrointestinal complaints Genitourinary: Genitourinary: Reports no additional male genitourinary complaints Exam Narrative: Exam Narrative: General: WD/WN AA male in NAD Heart: normal S1 and S2; no rub Lungs: clear bilaterally Abdomen: soft, nontender, nondistended, positive bowel sounds Extremities: no cyanosis or clubbing; no edema Skin: No rash Objective Data Vital Signs Vital Signs: Vital Signs - 24 hr 05/24/20 14:00 05/24/20 22:00 Temperature 36.5 C 36.7 C Pulse Rate 77 79 Respiratory Rate 18 18 Blood Pressure 144/74 H 147/74 H Pulse Oximetry 98 96 Intake/Output Intake/Output: Intake & Output 05/22/20 05/23/20 05/24/20 05/25/20 23:59 23:59 23:59 23:59 Intake Total 1150 520 610 50 Output Total 150 125 Balance 1000 520 485 50 Meds/Results Medications: Active Medications Generic Name Dose Route Start Last Admin Trade Name Freq PRN Reason Stop Dose Admin Acetaminophen 650 mg 05/18/20 13:35 Acetaminophen 325 Mg Tablet PO Q4H PRN Pain 1-3 Hydrocodone Bitart/Acetaminophen 1 tab 05/20/20 15:11 Hydrocodone/Acetaminophen (*Crx) 5-325 Mg Tablet PO Q4H PRN Pain Rated 4-6 Hydrocodone Bitart/Acetaminophen 1 tab 05/20/20 15:11 Hydrocodone/Acetaminophen (*Crx) 7.5-325 Mg Tablet PO Q4H PRN Pain Rated 7-10 Amlodipine Besylate 5 mg 05/25/20 09:00 Amlodipine Besylate 5 Mg Tablet PO QAM CELIA Enoxaparin Sodium 40 mg 05/21/20 09:00 05/24/20 08:12 Enoxaparin 40 Mg/0.4 Ml Syringe SUB-Q 40 mg DAILY CELIA Administration Folic Acid 1 mg 05/19/20 09:00 05/24/20 08:11 Folic Acid 1 Mg Tablet PO 1 mg DAILY CELIA Administration Guaifenesin 600 mg 05/23/20 21:00 05/24/20 20:46 Guaifenesin 12 Hr 600 Mg Tabcr PO 600 mg Q12HR CELIA Administration Ampicillin Sodium/Sulbactam Sodium 1.5 gm in 50 mls @ 100 mls/hr 05/24/20 15:00 05/25/20 06:47 Unasyn 1.5 Gm/Ns 50 Ml IVPB Infused Q8HR CELIA Infusion Lorazepam 0.5 mg 05/17/20 23:57 Lorazepam Inj (*Crx) 2 Mg/Ml Vial IV PUSH Q6H PRN Anxiety Miconazole Nitrate 1 applic 05/19/20 09:00 05/24/20 20:52 Miconazole 2% Antifungal Ointment 56 Gm TOPICAL 1 applic Q12HR CELIA Administration Morphine Sulfate 2 mg 05/20/20 15:11 Morphine Sulfate (*Crx) 2 Mg/Ml Inj IV PUSH Q2H
[2020-05-25] MEDS: THIAMINE HCL 100 MG TABLET PO (08:52)
[2020-05-25] MEDS: polyethylene glycoL 3350 17 GM POWD.PACK PO (08:52)
[2020-05-25] MEDS: guaiFENesin 12 HR 600 MG TABCR PO ×2 (08:52→21:13)
[2020-05-25] MEDS: amLODIPine BESYLATE 5 MG TABLET PO (08:52)
[2020-05-25] MEDS: CYANOCOBALAMIN INJ 1,000 MCG/ML VIAL 1000 MCG IM (08:52)
[2020-05-25] MEDS: FOLIC ACID 1 MG TABLET PO (08:52)
[2020-05-25] MEDS: ENOXAPARIN 40 MG/0.4 ML SYRINGE SUB-Q (08:53)
--- NOTE | 2020-05-25 09:51 | PM.IMPN ---
Progress Note: A&P Assessment and Plan (1) Incarcerated left inguinal hernia: Code(s): K40.30 - Unilateral inguinal hernia, with obstruction, without gangrene, not specified as recurrent Status: Resolved Assessment and Plan: Patient presented with abdominal pain. CT showed left inguinal hernia containing small bowel. Hernia was reduced and obstruction resolved. He is now s/p incarcerated left inguinal hernia repair by Dr. Gutierrez on 05/20/20. He tolerated the procedure well and pain has been well controlled. General surgery following. Stable from surgical standpoint. Continue analgesics as needed for pain (2) SBO (small bowel obstruction): Code(s): K56.609 - Unspecified intestinal obstruction, unspecified as to partial versus complete obstruction Status: Resolved Assessment and Plan: Resolved. Secondary to left inguinal hernia as noted above. NG tube discontinued on 05/18/20. Tolerating diet. Bowels are moving. Analgesics and antiemetics as needed Continue miralax daily. (3) Acute renal failure: Code(s): N17.9 - Acute kidney failure, unspecified Status: Acute Assessment and Plan: Baseline creatinine is unclear. Renal ultrasound showed mild atrophy of the kidneys with no hydronephrosis. Suspect prerenal secondary to dehydration. UA with blood and protein. BUN and Cr with slow improvement; Cr 1.7 today. Nephrology is following and recommendations are appreciated. Serological workup pending. Monitor electrolytes closely. Monitor urine output. Renally dose medications and avoid nephrotoxins. Monitor renal function closely (4) Altered mental status: Code(s): R41.82 - Altered mental status, unspecified Status: Acute Assessment and Plan: His mental status has been fluctuant. He does have underlying dementia. CVA was considered due to onset of dysphagia and dysmetria with finger to nose testing. Wernicke's encephalopathy or other sequelae from alcohol abuse was also considered. Seizure disorder considered given fluctuance of mental status. Vitamin B12 is on the lower limits of normal and will be supplemented. Folate is normal. Head CT showed extensive white matter disease with no acute findings. MRI showed chronic small-vessel ischemic disease with no acute findings. Neuro exam has improved and patient no longer demonstrating dysmetria and there are no focal deficits appreciated today. Neuro consult placed. Recommendations are appreciated. EEG was performed today per neurology recommendations Continue with thiamine and folic acid Monitor mental status closely Will order carotid doppler US and echocardiogram due to concern for possible TIA/CVA although MRI was negative for acute findings (5) Dysphagia: Code(s): R13.10 - Dysphagia, unspecified Status: Acute Assessment and Plan: Patient noted by nursing staff to have difficulty with liquid diet. He was gurgling on exam with improvement following suctioning. Bedside swallow eval on 05/19 performed with repeat MBS. It was recommended to continue with soft and bite size diet and mildly thick liquids. He is doing well today. Continue with speech therapy. Continue soft and bite size diet and mildly thick liquids Continue with suction prn and appropriate oral care Aspiration precautions in place (6) Aspiration pneumonia: Code(s): J69.0 - Pneumonitis due to inhalation of food and vomit Status: Acute Assessment and Plan: Patient with increased cough productive of clear sputum and known dysphagia. CXR showed opacities in the right upper lung zone and bronchiectatic changes. Follow-up chest CT showed airspace opacities in the right upper lobe and bilateral lower lobes consistent with pneumonia. Suspect this is secondary to aspiration. No fever or leukocytosis noted. IV Unasyn was initiated 05/24 Sputum culture was ordered and is pending
--- NOTE | 2020-05-25 12:25 | PCNFU ---
Nutrition Follow-Up Complete: Inadequate oral intake r/t poor appetite as evidence by 0% intake Goal: PO intake of 50% or greater of meals Limited progress towards goal. We continue current goal. Pt current nutrition is soft and bite sized, Level 6. Nutrition recommendation:Agree Last recorded weight is 104 kg, no new weight has been reported. Bowel Motility:+BM 05/25 Labs Reviewed: Cr 1.7,BUN 26,GFR 39,Hct 30.9,Hgb 10.5 Meds Noted:Folic Acid, Mucinex,Miralax,Vit B1,Lovenox Additional Notes: Nutrition follow up. Patient confused, refused evening meal last night. Today 95% of breakfast was reported. Spoke with nursing today, they are going to give patient his food first before drinking diet supplements. PO intake is encouraged. Monitoring: po intake, wt, diet every five days
[2020-05-25 14:46] VITALS: BP 160/66; PULSE 91; RESP 20; TEMP 36.2; O2SAT 100
[2020-05-25 20:14] LABS: Complement Total CH50 >60 U/mL (31-60)
[2020-05-25 22:00] VITALS: BP 139/61; PULSE 81; RESP 21; TEMP 36.2; O2SAT 100
[2020-05-26 05:51] LABS: Hematocrit 31.4 % (42.0-52.0); Hemoglobin 10.5 g/dL (14.0-18.0); Mean Corpuscular HGB Conc 33.4 g/dl (32-36); Mean Corpuscular Hemoglobin 34.7 pg (26-34); Mean Corpuscular Volume 103.6 fl (80-100); Mean Platelet Volume 9.1 fl (7.4-10.4); Platelet Count Result 167 k/mm3 (150-375); Red Blood Count 3.03 M/mm3 (4.6-6.20); Red Cell Distribution Width 14.5 % (11.5-14.5); White Blood Count 4.4 K/mm3 (4.5-10.0)
[2020-05-26 06:00] VITALS: BP 127/62; PULSE 75; RESP 20; TEMP 36.1; O2SAT 99
[2020-05-26] MEDS: AMPICILLIN SULB 1.5 GM/NS 50ML 1.5 GM/50 ML VIAL IVPB ×3 (06:06→23:09)
[2020-05-26 06:07] LABS: Albumin Level 2.9 g/dL (3.5-5.1); Anion Gap 6 mmol/L (8-16); Blood Urea Nitrogen 24 mg/dL (9-20); Calcium 8.6 mg/dL (8.4-10.2); Carbon Dioxide 23 mmol/L (22-30); Chloride 112 mmol/L (98-107); Estimated CRCL calculation 42 ml/min; Estimated Glomerular Filt Rate 42; Glucose 92 mg/dL (75-110); Magnesium 1.7 mg/dL (1.6-2.3); Phosphorus 2.9 mg/dL (2.5-4.5); Potassium 4.2 mmol/L (3.4-5.0); Sodium 141 mmol/L (137-145)
[2020-05-26] MEDS: polyethylene glycoL 3350 17 GM POWD.PACK PO (08:26)
[2020-05-26] MEDS: THIAMINE HCL 100 MG TABLET PO (08:26)
[2020-05-26] MEDS: amLODIPine BESYLATE 5 MG TABLET PO (08:26)
[2020-05-26] MEDS: guaiFENesin 12 HR 600 MG TABCR PO ×2 (08:26→20:46)
[2020-05-26] MEDS: ENOXAPARIN 40 MG/0.4 ML SYRINGE SUB-Q (08:26)
[2020-05-26] MEDS: FOLIC ACID 1 MG TABLET PO (08:26)
--- NOTE | 2020-05-26 08:50 | PC.NURSE ---
Patient to MBS.
[2020-05-26 09:01] LABS: Cholesterol 108 mg/dL (0-200); HDL Direct 20 mg/dL; Triglycerides 108 mg/dL (<150)
--- NOTE | 2020-05-26 09:03 | WPDNEUROLOGY ---
Neurology EEG Report General Information Date of Study: 05/25/20 TEST eeg DIAGNOSIS altered mental status CONDITION OF RECORDING awake drowsy and sleep EEG NUMBER [id number] CLINICAL HISTORY patient unable to give any history EEG DESCRIPTION background rhythm consists of low to medium voltage 3 to 4 hertz per 2nd delta admixed with low to medium voltage 5 to 7 hertz per 2nd theta activity. During drowsiness medium voltage theta activity seen diffusely. Bilateral symmetrical sleep activity seen. Hyperventilation not done. Photic stimulation not done. Non paroxysmal. Nonfocal. Nonlateralizing. IMPRESSION Abnormal record due to the presence of bihemispheric theta and delta activity without evidence of any paroxysmal discharge. These abnormalities are suggestive of organic or metabolic encephalopathy. Clinical correlation recommended
[2020-05-26 09:12] LABS: LDL Cholesterol Direct 62 mg/dL
[2020-05-26] MEDS: ASPIRIN 81 MG ENTERIC TABLET PO (09:33)
[2020-05-26] MEDS: CYANOCOBALAMIN 1,000 MCG TABLET 1000 MCG PO (09:33)
--- NOTE | 2020-05-26 09:43 | PCSTNOTE ---
Please refer to the Modified Barium Swallow Evaluation in the EMR.
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
[2020-05-26 11:32] LABS: ANCA Screen Negative (Negative)
--- NOTE | 2020-05-26 13:12 | PM.IMPN ---
Progress Note: A&P Assessment and Plan (1) Incarcerated left inguinal hernia: Code(s): K40.30 - Unilateral inguinal hernia, with obstruction, without gangrene, not specified as recurrent Status: Resolved Assessment and Plan: Patient presented with abdominal pain. CT showed left inguinal hernia containing small bowel. Hernia was reduced and obstruction resolved. He is now s/p incarcerated left inguinal hernia repair by Dr. Gutierrez on 05/20/20. He tolerated the procedure well and pain has been well controlled. General surgery following. Stable from surgical standpoint. Continue analgesics as needed for pain (2) SBO (small bowel obstruction): Code(s): K56.609 - Unspecified intestinal obstruction, unspecified as to partial versus complete obstruction Status: Resolved Assessment and Plan: Resolved. Secondary to left inguinal hernia as noted above. NG tube discontinued on 05/18/20. Tolerating diet. Bowels are moving. Analgesics and antiemetics as needed Continue miralax daily. (3) Acute renal failure: Code(s): N17.9 - Acute kidney failure, unspecified Status: Acute Assessment and Plan: Baseline creatinine is unclear. Renal ultrasound showed mild atrophy of the kidneys with no hydronephrosis. Suspect prerenal secondary to dehydration. UA with blood and protein. BUN and Cr with slow improvement; Cr 1.7 today. Nephrology is following and recommendations are appreciated. Serological workup ordered per nephrology. PEP shows M spike in gamma globulin region. Immunofixation is recommended. Will order. Monitor electrolytes closely. Monitor urine output. Renally dose medications and avoid nephrotoxins. Monitor renal function closely (4) Altered mental status: Code(s): R41.82 - Altered mental status, unspecified Status: Acute Assessment and Plan: His mental status has been fluctuant. He does have underlying dementia. CVA was considered due to onset of dysphagia and dysmetria with finger to nose testing which resolved. Wernicke's encephalopathy or other sequelae from alcohol abuse was also considered. Seizure disorder considered given fluctuance of mental status. Vitamin B12 is on the lower limits of normal and will be supplemented. Folate is normal. Head CT showed extensive white matter disease with no acute findings. MRI showed chronic small-vessel ischemic disease with no acute findings. Neuro exam has improved and patient no longer demonstrating dysmetria and there are no focal deficits appreciated. EEG noted. Neuro is following. Recommendations are appreciated. EEG noted. Await further neurology input regarding EEG. Continue with thiamine and folic acid Continue vitamin B12 supplementation Monitor mental status closely Carotid doppler US showed <50% stenosis bilaterally and echo showed small PFO which cardiology does not recommend closing. Will give ASA 325mg per cardiology recommendations. Lipid panel ordered. LDL is 62 and HDL low at 20. (5) Dysphagia: Code(s): R13.10 - Dysphagia, unspecified Status: Acute Assessment and Plan: Patient noted by nursing staff to have difficulty with liquid diet. Bedside swallow eval on 05/19 performed with repeat MBS and LOCAL DELIVERY DRIVER recommended to continue with soft and bite size diet and mildly thick liquids. MBS was repeated today with improvement per LOCAL DELIVERY DRIVER. There was some delayed swallows with liquids, mild pooling in vallecula, and reduced pharyngeal squeeze but there does not appear to be aspiration. Will await further LOCAL DELIVERY DRIVER recommendations regarding MBS findings. Continue with speech therapy. Continue soft and bite size diet and mildly thick liquids Continue with suction prn and appropriate oral care Aspiration precautions in place (6) Aspiration pneumonia: Code(s): J69.0 - Pneumonitis due to inhalation of food and vomit Status: Acute Assessment and Plan: Greg
[2020-05-26 14:00] VITALS: BP 152/78; PULSE 73; RESP 20; TEMP 36.4; O2SAT 100
--- NOTE | 2020-05-26 14:29 | PC.NURSE ---
Patient to US per stretcher.
--- NOTE | 2020-05-26 15:37 | PM.PNNEP ---
Progress Note: A&P Assessment and Plan (1) Acute renal failure: Code(s): N17.9 - Acute kidney failure, unspecified Status: Acute Assessment and Plan: unclear what baseline creatinine is if not normal. renal ultrasound shows chronic changes consistent with chronic kidney disease. His creatinine today is 1.6. I suspect he has reached his new baseline. (2) Acute hyperkalemia: Code(s): E87.5 - Hyperkalemia Status: Resolved Assessment and Plan: Resolved (3) SBO (small bowel obstruction): Code(s): K56.609 - Unspecified intestinal obstruction, unspecified as to partial versus complete obstruction Status: Resolved Assessment and Plan: due to hernia which was reducible s/p laparoscopic incarcerated left inguinal hernia repair Surgery following Patient seems to be doing very well. (4) History of hypertension: Code(s): Z86.79 - Personal history of other diseases of the circulatory system Status: Acute Assessment and Plan: Blood pressure has gradually been coming down. On amlodipine Subjective Date/time seen: 05/26/20 15:37 Interval history: Patient is alert. Son is on face time with the patient. We discussed the case. No complaints. Eating well he says. Review of Systems Cardiovascular: Cardiovascular: Reports no additional cardiovascular complaints Respiratory: Respiratory: Reports no additional respiratory complaints Gastrointestinal: Gastrointestinal: Reports no additional gastrointestinal complaints Genitourinary: Genitourinary: Reports no additional male genitourinary complaints Exam Narrative: Exam Narrative: General: WD/WN AA male in NAD Heart: normal S1 and S2; no rub Lungs: clear bilaterally Abdomen: soft, nontender, nondistended, positive bowel sounds Extremities: no cyanosis or clubbing; no edema Skin: No rash Objective Data Vital Signs Vital Signs: Vital Signs - 24 hr 05/25/20 22:00 05/26/20 06:00 05/26/20 14:00 Temperature 36.2 C L 36.1 C L 36.4 C Pulse Rate 81 75 73 Respiratory Rate 21 H 20 20 Blood Pressure 139/61 127/62 152/78 H Pulse Oximetry 100 99 100 Intake/Output Intake/Output: Intake & Output 05/23/20 05/24/20 05/25/20 05/26/20 23:59 23:59 23:59 23:59 Intake Total 030 796 5720 650 Output Total 125 400 Balance 334 274 6765 650 Meds/Results Medications: Active Medications Generic Name Dose Route Start Last Admin Trade Name Freq PRN Reason Stop Dose Admin Acetaminophen 650 mg 05/18/20 13:35 Acetaminophen 325 Mg Tablet PO Q4H PRN Pain 1-3 Hydrocodone Bitart/Acetaminophen 1 tab 05/20/20 15:11 Hydrocodone/Acetaminophen (*Crx) 5-325 Mg Tablet PO Q4H PRN Pain Rated 4-6 Hydrocodone Bitart/Acetaminophen 1 tab 05/20/20 15:11 Hydrocodone/Acetaminophen (*Crx) 7.5-325 Mg Tablet PO Q4H PRN Pain Rated 7-10 Amlodipine Besylate 5 mg 05/25/20 09:00 05/26/20 08:26 Amlodipine Besylate 5 Mg Tablet PO 5 mg QAM CELIA Administration Aspirin 325 mg 05/27/20 09:00 Aspirin 325 Mg Enteric Tablet PO QAM CELIA Cyanocobalamin 1,000 mcg 05/26/20 09:00 05/26/20 09:33 Cyanocobalamin 1,000 Mcg Tablet PO 1,000 mcg QAM CELIA Administration Enoxaparin Sodium 40 mg 05/21/20 09:00 05/26/20 08:26 Enoxaparin 40 Mg/0.4 Ml Syringe SUB-Q 40 mg DAILY CELIA Administration Folic Acid 1 mg 05/19/20 09:00 05/26/20 08:26 Folic Acid 1 Mg Tablet PO 1 mg DAILY CELIA Administration Guaifenesin 600 mg 05/23/20 21:00 05/26/20 08:26 Guaifenesin 12 Hr 600 Mg Tabcr PO 600 mg Q12HR CELIA Administration Ampicillin Sodium/Sulbactam Sodium 1.5 gm in 50 mls @ 100 mls/hr 05/24/20 15:00 05/26/20 14:55 Unasyn 1.5 Gm/Ns 50 Ml IVPB 100 mls/hr Q8HR CELIA Administration Lorazepam 0.5 mg 05/17/20 23:57 Lorazepam Inj (*Crx) 2 Mg/Ml Vial IV PUSH Q6H PRN Anxiety Miconazole Nitrate 1 appl
[2020-05-26 20:00] VITALS: BP 146/71; PULSE 77; RESP 20; TEMP 36.4; O2SAT 98
[2020-05-27 04:00] VITALS: BP 136/68; PULSE 76; RESP 20; TEMP 36.4; O2SAT 96
[2020-05-27 05:07] LABS: Hematocrit 29.8 % (42.0-52.0); Hemoglobin 9.8 g/dL (14.0-18.0); Mean Corpuscular HGB Conc 32.9 g/dl (32-36); Mean Corpuscular Hemoglobin 34.1 pg (26-34); Mean Corpuscular Volume 103.8 fl (80-100); Mean Platelet Volume 9.2 fl (7.4-10.4); Platelet Count Result 166 k/mm3 (150-375); Red Blood Count 2.87 M/mm3 (4.6-6.20); Red Cell Distribution Width 14.6 % (11.5-14.5); White Blood Count 4.3 K/mm3 (4.5-10.0)
[2020-05-27 05:23] LABS: Albumin Level 2.7 g/dL (3.5-5.1); Anion Gap 2 mmol/L (8-16); Blood Urea Nitrogen 24 mg/dL (9-20); Calcium 8.5 mg/dL (8.4-10.2); Carbon Dioxide 28 mmol/L (22-30); Chloride 108 mmol/L (98-107); Estimated CRCL calculation 40 ml/min; Estimated Glomerular Filt Rate 39; Glucose 89 mg/dL (75-110); Phosphorus 3.3 mg/dL (2.5-4.5); Potassium 4.2 mmol/L (3.4-5.0); Sodium 138 mmol/L (137-145)
[2020-05-27] MEDS: AMPICILLIN SULB 1.5 GM/NS 50ML 1.5 GM/50 ML VIAL IVPB ×2 (05:32→13:12)
[2020-05-27] MEDS: CYANOCOBALAMIN 1,000 MCG TABLET 1000 MCG PO (08:56)
[2020-05-27] MEDS: amLODIPine BESYLATE 5 MG TABLET PO (08:56)
[2020-05-27] MEDS: FOLIC ACID 1 MG TABLET PO (08:56)
--- NOTE | 2020-05-27 08:56 | PC.NURSE ---
call to pharm to report missin asa dose
[2020-05-27] MEDS: ENOXAPARIN 40 MG/0.4 ML SYRINGE SUB-Q (08:57)
[2020-05-27] MEDS: THIAMINE HCL 100 MG TABLET PO (08:57)
[2020-05-27] MEDS: guaiFENesin 12 HR 600 MG TABCR PO (08:57)
--- NOTE | 2020-05-27 09:23 | PM.PNCARD ---
Progress Note: A&P Assessment and Plan (1) PFO (patent foramen ovale): Code(s): Q21.1 - Atrial septal defect Status: Acute Assessment and Plan: Continue aspirin. Cardiology to sign off (2) Hypertension: Code(s): I10 - Essential (primary) hypertension Status: Acute Assessment and Plan: above goal (3) Altered mental status: Code(s): R41.82 - Altered mental status, unspecified Status: Acute Assessment and Plan: reportedly improved. (4) Incarcerated left inguinal hernia: Code(s): K40.30 - Unilateral inguinal hernia, with obstruction, without gangrene, not specified as recurrent Status: Resolved Assessment and Plan: status post surgery Subjective Date/time seen: 05/27/20 09:23 Interval history: 79-year-old admitted for incarcerated hernia. Date of service 05/27/2020: He denies any chest pain or shortness of breath Review of Systems Review of Systems: All systems reviewed & are unremarkable except as noted in HPI and below Constitutional: Constitutional: Denies fatigue, Denies headache(s) and Reports weakness Eyes: Eyes: Denies blurry vision ENT: Reports Normal hearing present, Denies headache(s), Denies lip swelling and Denies neck pain Cardiovascular: Cardiovascular: Denies chest pain and Denies dyspnea Respiratory: Respiratory: Denies dyspnea Gastrointestinal: Gastrointestinal: Reports vomiting Genitourinary: Genitourinary: Denies dysuria Musculoskeletal: Musculoskeletal: Denies back pain, Reports arthralgias and Denies neck pain Integumentary/Breasts: Skin/Breast: Denies dry skin Neurologic: Reports Normal hearing present, Denies headache(s) and Reports weakness Psychiatric: Psychiatric: Denies anxiety Endocrine: Endocrine: Denies fatigue Hematologic/Lymphatic: Hematologic/Lymphatic: Denies easy bruising Allergic/Immunologic: Allergic/Immunologic: Denies GI upset with certain foods and Denies lip swelling Exam Narrative: Exam Narrative: patient is awake alert Appears to be in no acute distress Const: General: comfortable and no acute distress HENMT: General nose exam: Normal nares present and no epistaxis Eyes: Sclera: sclerae normal Neck: Neck: supple and no JVD Chest: Other: no reproducible chest wall pain to palpation Resp: Auscultation: clear to auscultation bilaterally Cardio: Rate: regular rate Skin: General skin exam: normal color Neuro: Cranial nerves: Yes Normal hearing present Cognition (Neuro): normal cognition Speech: normal speech Extrem: General: pedal edema ( trivial right leg edema) Psych: Mental Status: mental status grossly normal Objective Data Vital Signs Vital Signs: Vital Signs - 24 hr 05/26/20 14:00 05/26/20 20:00 05/27/20 04:00 Temperature 36.4 C 36.4 C L 36.4 C L Pulse Rate 73 77 76 Respiratory Rate 20 20 20 Blood Pressure 152/78 H 146/71 H 136/68 Pulse Oximetry 100 98 96 Intake/Output Intake/Output: Intake & Output 05/24/20 05/25/20 05/26/20 05/27/20 23:59 23:59 23:59 23:59 Intake Total 610 1710 1050 Output Total 125 400 Balance 485 1310 1050 Meds/Results Medications: Active Medications Generic Name Dose Route Start Last Admin Trade Name Freq PRN Reason Stop Dose Admin Acetaminophen 650 mg 05/18/20 13:35 Acetaminophen 325 Mg Tablet PO Q4H PRN Pain 1-3 Hydrocodone Bitart/Acetaminophen 1 tab 05/20/20 15:11 Hydrocodone/Acetaminophen (*Crx) 5-325 Mg Tablet PO Q4H PRN Pain Rated 4-6 Hydrocodone Bitart/Acetaminophen 1 tab 05/20/20 15:11 Hydrocodone/Acetaminophen (*Crx) 7.5-325 Mg Tablet PO Q4H PRN Pain Rated 7-10 Amlodipine Besylate 5 mg 05/25/20 09:00 05/27/20 08:56 Amlodipine Besylate 5 Mg Tablet PO 5 mg QAM [facility] Administration Aspirin 325 mg 05/27/20 09:00 Aspirin 325 Mg [facility]ic [facility] Cyanocobalamin 1,000 mcg 05/26/20 09:00 05/27/20 08:56
--- NOTE | 2020-05-27 09:57 | PC.NURSE ---
attempted to return son John's phone call, no answer, generic message left
--- NOTE | 2020-05-27 10:43 | PC.NURSE ---
son returned call, reviewed plan of care
--- NOTE | 2020-05-27 12:04 | PM.PNNEP ---
Progress Note: A&P Assessment and Plan (1) Acute renal failure: Code(s): N17.9 - Acute kidney failure, unspecified Status: Acute Assessment and Plan: unclear what baseline creatinine is if not normal. renal ultrasound shows chronic changes consistent with chronic kidney disease. His creatinine seems to have stabilized between 1.5 and 1.7. I suspect he has reached his new baseline. We will view from a distance. He should make an appointment in Dr. Sanchez is office over the next few months. (2) Acute hyperkalemia: Code(s): E87.5 - Hyperkalemia Status: Resolved Assessment and Plan: Resolved (3) SBO (small bowel obstruction): Code(s): K56.609 - Unspecified intestinal obstruction, unspecified as to partial versus complete obstruction Status: Resolved Assessment and Plan: due to hernia which was reducible s/p laparoscopic incarcerated left inguinal hernia repair Surgery following Patient seems to be doing very well. (4) History of hypertension: Code(s): Z86.79 - Personal history of other diseases of the circulatory system Status: Acute Assessment and Plan: Blood pressure is doing well today. On amlodipine Subjective Date/time seen: 05/27/20 12:04 Interval history: Patient is alert. Patient is up in a chair eating breakfast. He feels good today. No complaints. Eating well he says. Review of Systems Cardiovascular: Cardiovascular: Reports no additional cardiovascular complaints Respiratory: Respiratory: Reports no additional respiratory complaints Gastrointestinal: Gastrointestinal: Reports no additional gastrointestinal complaints Genitourinary: Genitourinary: Reports no additional male genitourinary complaints Exam Narrative: Exam Narrative: General: WD/WN AA male in NAD Heart: normal S1 and S2; no rub Lungs: clear bilaterally Abdomen: soft, nontender, nondistended, positive bowel sounds Extremities: no edema Skin: No rash Or subcu nodules Objective Data Vital Signs Vital Signs: Vital Signs - 24 hr 05/26/20 14:00 05/26/20 20:00 05/27/20 04:00 Temperature 36.4 C 36.4 C L 36.4 C L Pulse Rate 73 77 76 Respiratory Rate 20 20 20 Blood Pressure 152/78 H 146/71 H 136/68 Pulse Oximetry 100 98 96 Intake/Output Intake/Output: Intake & Output 05/24/20 05/25/20 05/26/20 05/27/20 23:59 23:59 23:59 23:59 Intake Total 610 1710 1050 240 Output Total 125 400 Balance 485 1310 1050 240 Meds/Results Medications: Active Medications Generic Name Dose Route Start Last Admin Trade Name Freq PRN Reason Stop Dose Admin Acetaminophen 650 mg 05/18/20 13:35 Acetaminophen 325 Mg Tablet PO Q4H PRN Pain 1-3 Hydrocodone Bitart/Acetaminophen 1 tab 05/20/20 15:11 Hydrocodone/Acetaminophen (*Crx) 5-325 Mg Tablet PO Q4H PRN Pain Rated 4-6 Hydrocodone Bitart/Acetaminophen 1 tab 05/20/20 15:11 Hydrocodone/Acetaminophen (*Crx) 7.5-325 Mg Tablet PO Q4H PRN Pain Rated 7-10 Amlodipine Besylate 5 mg 05/25/20 09:00 05/27/20 08:56 Amlodipine Besylate 5 Mg Tablet PO 5 mg QAM [facility] Administration Aspirin 325 mg 05/27/20 09:00 Aspirin 325 Mg Enteric Tablet PO QAM [facility] Cyanocobalamin 1,000 mcg 05/26/20 09:00 05/27/20 08:56 Cyanocobalamin 1,000 Mcg Tablet PO 1,000 mcg QAM [facility] Administration Enoxaparin Sodium 40 mg 05/21/20 09:00 05/27/20 08:57 Enoxaparin 40 Mg/0.4 Ml Syringe SUB-Q 40 mg DAILY [facility] Administration Folic Acid 1 mg 05/19/20 09:00 05/27/20 08:56 Folic Acid 1 Mg Tablet PO 1 mg DAILY [facility] Administration Guaifenesin 600 mg 05/23/20 21:00 05/27/20 08:57 Guaifenesin 12 Hr 600 Mg Tabcr PO 600 mg Q12HR [facility] Administration Ampicillin Sodium/Sulbactam Sodium 1.5 gm in 50 mls @ 100 mls/hr 05/24/20 15:00 05/27/20 05:32 Unasyn 1.5 Gm/Ns 50 Ml IVPB 100 mls/hr Q8HR [facility] Administration
[2020-05-27] MEDS: ASPIRIN 325 MG ENTERIC TABLET PO (13:12)
[2020-05-27 14:00] VITALS: BP 140/63; PULSE 64; RESP 18; TEMP 36.7; O2SAT 95
--- NOTE | 2020-05-27 14:34 | PM.DS ---
DS: Admitting Diagnosis Admitting Diagnosis Admitting Diagnosis: Incarcerated hernia with small bowel obstruction DS: Discharge Diagnosis Discharge Diagnosis (1) Incarcerated left inguinal hernia: Code(s): K40.30 - Unilateral inguinal hernia, with obstruction, without gangrene, not specified as recurrent Status: Resolved Assessment and Plan: Resolved. Patient presented with abdominal pain. CT showed left inguinal hernia containing small bowel. Hernia was reduced and obstruction resolved. He is now s/p incarcerated left inguinal hernia repair by Dr. Gutierrez on 05/20/20. He tolerated the procedure well and pain was well-controlled. He was advised to follow-up with general surgery outpatient for post-op care. (2) SBO (small bowel obstruction): Code(s): K56.609 - Unspecified intestinal obstruction, unspecified as to partial versus complete obstruction Status: Resolved Assessment and Plan: Resolved. Secondary to left inguinal hernia as noted above. NG tube discontinued on 05/18/20 and he was tolerating diet well with normal bowel function. (3) Acute renal failure: Code(s): N17.9 - Acute kidney failure, unspecified Status: Acute Assessment and Plan: Baseline creatinine is unclear. Renal ultrasound showed mild atrophy of the kidneys with no hydronephrosis. Suspect prerenal secondary to dehydration. UA with blood and protein. BUN and Cr with slow improvement. He was seen by nephrology who ordered serological workup. PEP shows M spike in gamma globulin region. Immunofixation was ordered and showed IgG lambda monoclonal bands present with results available after discharge. He will need need to follow-up with his PCP to discuss referral to hematology/oncology. 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 PEP shows M spike in gamma globulin region. Immunofixation was ordered and showed IgG lambda monoclonal bands present with results available after discharge. He will need need to follow-up with his PCP to discuss further workup and possible referral to hematology/oncology. I did speak with Dr. Jarred Jaramillo regarding this finding as well as the patient's son, Vin Sylvester Jr. He will follow-up with Dr. Jaramillo for further workup as necessary. (5) Altered mental status: Code(s): R41.82 - Altered mental status, unspecified Status: Acute Assessment and Plan: Resolved. His mental status was fluctuant. He does have underlying dementia. CVA was considered as well as Wernicke's encephalopathy or other sequelae from alcohol abuse. Vitamin B12 was on the lower limits of normal and was supplemented with PO supplement prescribed at discharge. Folate was normal. Head CT showed extensive white matter disease with no acute findings. MRI showed chronic small-vessel ischemic disease with no acute findings. He was seen by neurology as well. ASA was initiated given concern for possible CVA/TIA and small vessel disease. Carotid doppler US showed <50% stenosis bilaterally and echo showed small PFO which cardiology does not recommend closing. Will give ASA 325mg per cardiology recommendations. Lipid panel ordered. LDL is 62 and HDL low at 20. He was advised to continue outpatient follow-up with neurology. (6) Dysphagia: Code(s): R13.10 - Dysphagia, unspecified Status: Acute Assessment and Plan: Patient noted by nursing staff to have difficulty with liquid diet. Bedside swallow eval on 05/19 performed with MBS and [employer] recommended to continue with soft and bite size diet and mildly thick liquids. MBS was repeated again 05/26/20 with improvement per [employer] and she advised he could resume thin liquids. I recommended he continue outpatient speech therapy. (7) Aspiration pneumonia: Code(s): J69.0 - Pneumonitis due
--- NOTE | 2020-06-02 09:50 | PC.NURSE ---
SPEP-c reveals restricted band (M-spike) migrating in the gamma globulin region.
== END 2020-05-27 16:40 | disposition home health service (06) | DRG 350 ==
LOC: ANHED 14:53 → ANH2MED 15:25
PROVIDERS: Emergency Medicine; Internal Medicine Nephrology; Nurse Practitioner; Physician Assistant; Surgery; Admitting Provider Internal Medicine; Emergency Provider Emergency Medicine; Visit Provider Physician Assistant
PROC: 8E0Y4CZ Robotic Assisted Procedure of Lower Extremity, Percutaneous Endoscopic Approach (ICD-10-PCS; CPT 49650; principal; 2020-05-20 09:00)
DX: K40.30 Unilateral inguinal hernia, with obstruction, without gangrene, not specified as recurrent (principal); J69.0 Pneumonitis due to inhalation of food and vomit; N17.9 Acute kidney failure, unspecified; Q21.1 Atrial septal defect; Z20.828 Contact with and (suspected) exposure to other viral communicable diseases; D47.2 Monoclonal gammopathy; E87.5 Hyperkalemia; R33.9 Retention of urine, unspecified; I10 Essential (primary) hypertension; F10.10 Alcohol abuse, uncomplicated; F03.90 Unspecified dementia, unspecified severity, without behavioral disturbance, psychotic disturbance, mood disturbance, and anxiety; R41.82 Altered mental status, unspecified; R27.8 Other lack of coordination; R13.10 Dysphagia, unspecified; K11.7 Disturbances of salivary secretion; Z86.39 Personal history of other endocrine, nutritional and metabolic disease; Z87.891 Personal history of nicotine dependence
CPT/HCPCS: 36415; 51702; 70450; 70551; 71046; 71250; 74018; 74176; 76604; 76775; 80048; 80053; 80061; 80069; 80076; 80307; 81001; 81050; 82436; 82550; 82570; 82595; 82607; 82746; 83520; 83605; 83690; 83735; 83930; 84100; 84155; 84156; 84165; 84300; 85025; 85027; 85610; 85652; 85999; 86021; 86038; 86060; 86140; 86160; 86162; 86334; 86706; 86850; 86900; 86901; 87040; 87070; 87086; 87205; 87340; 87635; 92526; 92610; 92611; 93005; 93306; 93880; 94002; 95816; 96361; 96374; 96375; 97110; 97116; 97161; 97165; 97530; 97535; 99291; A9270; C1781; C9803; G0378; J0295; J0330; J0690; J0696; J1100; J1650; J2405; J2704; J2710; J3010; J3411; J3420; J7030; J7120; U0003